=== PATIENT | female | born 1955 | race African-American/Black ===

== ENCOUNTER → 2016-07-09 | Outpatient (CLI) | payer OTHER ==
[~2016-07-09] VITALS: Ht 160 cm; Wt 109.5 kg
[~2016-07-09] MED LIST: ACCUNEB SO1.25 MG/1 INH; ADVAIR HFA 230M12 GM INH; ALBUTEROL2.5 MG/0.1 INH; ALBUTEROL2.5 MG/0.5 INH; ALDACTONE25 MG PO; ALEVE220 MG PO; ALPRAZOLAM ER1 MG PO; ALPRAZOLAM PO; ALPRAZOLAM1 MG PO; AMBIEN 10 MG TA10 MG PO; AMLODIPINE BESY10 MG PO; AMLODIPINE BESYL5 MG PO; APAP500 PO; ASA81BEC PO; BACTROBAN CREAM30 G1; BACTROBAN CREAM30 G1 TOP; BENADRYL25 MG PO; CALCIUM + VITA1 EACH PO; CALCIUM CITRAT1 EAC2 PO; CARAFATE 1 GM TA1 GM PO; CEFTIN 250 MG250 MG PO; CHERATUSSIN DA480 ML PO; CHLOR-TABLET4 MG PO; CHLORTHALIDONE25 MG PO; CIPRO500 MG PO; CITRACAL + D C1 EACH PO; CITRACAL D + H1 EACH PO; COLACE100 MG PO; CORTEF 20 MG TA20 MG PO; CORTEF10 MG PO; COZAAR 50 MG TA50 M1 PO; COZAAR100 MG PO; CRESTOR10 MG PO; DEPAKOTE 250MG250 M1 PO; DEXILANT60 MG; ELOCON15 GM; ELOCON15 GM TOP; FLAGYL500 MG PO; FLOMAX0.4 MG PO; FOLIC ACID; FOLIC ACID 40400 MCG PO; FOLIC ACID0.4 MG PO; GLUCOPHAGE500 MG PO; HYDROCODONE-AP1 EAC6 PO; HYDROCORT; HYDROCORTISONE PO; HYDROXYZINE HCL25 M1 PO; HYOSCYAMIN125 MCG/5 PO; IMODIUM MULTI-1 EACH PO; K-DUR 20 MEQ T20 MEQ PO; K-SOL20 MEQ/15 PO; KETOROLAC 0.5% E5 ML OPHTHALMIC; KLOR-CON 1010 MEQ PO; KLOR-CON20 MEQ PO; LATUDA60 MG PO; LEVAQUIN 500 M500 M2 PO; LEVEMIR SUBQ; LEVOTHYROXIN0.025 MG PO; LEVOTHYROXINE0.05 MG PO; LEXAPRO 10 MG T10 M1 PO; LEXAPRO20 MG PO; LIPITOR 20 MG T20 M1 PO; LISINOPRIL20 MG PO; LOMOTIL TABLET1 EACH PO; LOPERAMIDE 2 MG2 M1 PO; LORAZEPAM 0.50.5 MG PO; LOXAPINE25 MG PO; MEPRAZOLE; METFORMIN 500500 MG PO; METHOTREXATE; METHOTREXATE 22.5 M1 PO; MIRALAX17 GM PO; MIRALAX255 GM PO; MORPHINE; MORPHINE SULFAT30 M5 PO; MS CONTIN15 MG PO; MS CONTIN30 MG PO; MUCINEX DM TABL1 TA1 PO; MUCINEX600 MG PO; MULTIVITAMINS PO; NAPROSYN500 MG PO; NORCO 5-325 TA1 EACH PO; NORVASC 5 MG TAB5 MG PO; NORVASC5 MG PO; NOVOLOG100 UNIT/1 SUBQ; NOVOLOG100 UNIT/M SUBQ; OXYCODONE HCL15 MG PO; PHENERGAN 25 MG25 M1 PO; PHENERGAN25 MG RE; POTASSIUM20 PO; PRILOSEC 20 MG20 MG PO; PROMS25 WY RECTAL; PROTONIX40 M1 PO; PROTONIX40 M4 PO; RECLAST 55 MG/1002 IV; RECLAST 55 MG/1002 IVPB; REMERON15 MG PO; REMICADE 1100 MG/VIA; REMICADE 1100 MG/VIA IV; ROXICODONE15 M1 PO; ROXICODONE15 MG PO; SIMVASTATIN40 MG PO; SYMBICORT160 MCG/4.; TESSALON PERLE100 MG PO; TRADJENTA5 MG PO; TRANSDERM-SCO1 PATC1 TD; TRAZODONE HCL100 MG PO; TYLENOL325 MG PO; VANCOMYCIN100 MG/ML PO; VISTARIL 25 MG25 M1 PO; VITAMIN D; VITAMIN D 5050000 I1 PO; VITAMIN D2000 UNIT PO; XANAX; XANAX 0.25 MG0.25 MG PO; ZOFRAN ODT4 MG PO; ZOFRAN4 MG PO; ZYPREXA2.5 MG PO; [UNRECOGNIZED DRUG - OTHER]
--- NOTE | ~2016-07-09 | HPC ---
[facility] [address] [place] [address] PAIN MANAGEMENT CONSULTATION Name: YONG LUO Room #: REG [facility] Aminata.#: [id number] Admission: 07/09/16 Attend Phys: Evan Morales DO Discharge: Date of : 53 Report #: [id number] THIS REPORT FOR: //name// CC: Galdino Morales HISTORY OF PRESENT ILLNESS: The patient is a 60-year-old female. She had prior been seen last visit about 7 months ago in December 2014. She is status post lumbar decompressive laminectomy with ongoing radicular pain. We talked about moving forward with spinal cord stimulator at that time. She had epidural injections in August and September with transient efficacy. She has somewhat lost to follow up. Returns to pain clinic today, we had a prolonged visit today, greater than 50% of the 25+ minute visit was spent counseling the patient. She notes pain has recurred in the low back, right leg, lateral aspect, past several weeks without antecedent trauma nor overuse. While we had talked about a spinal cord stimulator as a possible option, her belt sander Dr. Roche had wisely pointed out that with the patient on Remicade, she is at high risk for surgical infection. We had discussed the stimulator as a "last option." The patient notes pain is "10" on a 0-10 visual analog scale. Presently, pain is interfering with function. She is unable to stand or walk for any period of time. PHYSICAL EXAMINATION: GENERAL: Shows a 60-year-old female, BMI is 42.8 kilograms per meter squared. Blood pressure is 102/67, pulse 107, respirations are 22. She is moderately febrile. Temperature 100. She notes she did wake last night with fever and chills. She does note she feels somewhat systemically ill with somewhat of an upper respiratory infection. She does have some cervical adenopathy. Positive rhonchi as well as erythema in the posterior pharynx. EXTREMITIES: Upper extremity strength is generally symmetric. Moderately antalgic gait. Right lower extremity strength is significantly diminished. The lower extremity extension and hip flexion is about 3/5 versus 4/5 on the left. Positive straight leg raise bilaterally at 30 degrees, right greater than left. Patellar and Achilles reflexes are diminished symmetrically. DIAGNOSTIC STUDIES: Reviewed MRI findings from 01/2013 noting grade 1 anterolisthesis at L5-S1, right lateral recess consistent with a chronic protrusion. ASSESSMENT: Symptomatic lumbar radiculopathy with acute upper respiratory infection. RECOMMENDATIONS: [facility] [address] [place] [address] PAIN MANAGEMENT CONSULTATION Name: YONG LUO Room #: REG [facility].#: [id number] Admission: 07/09/16 Attend Phys: Evan Morales DO Discharge: Date of : 53 Report #: [id number] 1. I do believe the patient benefitted from epidural injection under fluoroscopy. We will plan on moving forward after patient is seen by her general surgeon physician regarding upper respiratory infection symptoms. Again, with patient on Remicade, we are going to make sure that she is significantly improved before we expose her to any steroids. 2. Continue current medication from Dr. Roche including MS Contin and oxycodone p.r.n. The patient was discharged in good and stable condition today. Again on review, she notes she has a greater than 50% relief with prior injections in August 2014 and again in November 2015. We will plan on moving forward to repeat epidural injection under fluoroscopy at L5-S1 in about a week assuming her upper respiratory type symptoms are abated. Discharged in good and stable condition after prolonged visit. <ELECTRONICALLY SIGNED> By: Evan Morales DO 07/12/16 1228 1553 0403 Evan Morales DO /nt
[2016-07-09 09:23] VITALS: BP 102/67
== END | disposition home or self-care (01) ==
LOC: PAIN 07-02 07:46
DX: M54.16 Radiculopathy, lumbar region (principal); J06.9 Acute upper respiratory infection, unspecified; G89.29 Other chronic pain

== ENCOUNTER → 2016-08-23 | Outpatient (CLI) | payer OTHER ==
[~2016-08-23] VITALS: Ht 160 cm; Wt 108.4 kg
--- NOTE | ~2016-08-23 | HPC ---
[facility] [place] [address] PAIN MANAGEMENT CONSULTATION Name: ROYALYONG G Room #: REG [facility] MLucie.#: [id number] Admission: 08/23/16 Attend Phys: Evan Morales DO Discharge: Date of : 53 Report #: [id number] THIS REPORT FOR: //name// CC: Ric Morales HISTORY OF PRESENT ILLNESS: The patient is a 60-year-old female being treated for lumbar radiculopathy status post decompressive laminectomy, history of diabetes mellitus. She was last seen in the pain clinic 07/29/2016. Given a lumbar epidural injection at that time. She returns to pain clinic today noting the injection afforded at least 50% relief, which is ongoing. She states she is "able to do more." She does note she still has pain in the back and right leg, though back pain has dramatically improved; the right leg, she still rates up to 7/10. PHYSICAL EXAMINATION: Shows a modestly antalgic gait, slight decrease right hip flexor strength. Positive straight leg raise on the right. Vital signs are otherwise stable. BMI is slightly elevated at 42.3. She states blood sugars remained "reasonable" after KEENAN. ASSESSMENT: Symptomatic lumbar radiculopathy status post decompressive laminectomy, history of diabetes mellitus. RECOMMENDATION: Repeat epidural injection under fluoroscopy today. Follow up simply as needed. PROCEDURE: Lumbar epidural injection under fluoroscopy. PROCEDURE NOTE: After both written and informed consent to include risk of spinal cord damage, increased pain, weakness and dural puncture, the patient was taken to the fluoroscopy suite, placed in the prone position. After sterile prep and drape, a skin wheal with lidocaine was raised. A 4-1/2-inch 22-gauge epidural Tuohy needle was inserted in the midline at L5-S1 with good loss to resistance. Negative aspiration for cerebrospinal fluid or blood was noted. Then 1 mL of Omnipaque under biplanar fluoroscopy showed good spread within the epidural space. This was followed with 60 mg of triamcinolone plus 1 mL of 1.5% preservative-free Xylocaine, 0.5 mL Xylocaine was then injected to flush the needle; it was removed. The patient was monitored for an appropriate period of time and discharged in good and stable condition. <ELECTRONICALLY SIGNED> By: Evan Morales DO 08/25/16 0802 1548 Evan Morales DO /nt
[2016-08-23 14:06] VITALS: BP 142/82
== END | disposition home or self-care (01) ==
LOC: PAIN 08-19 12:57
DX: M54.16 Radiculopathy, lumbar region (principal); G89.29 Other chronic pain; E11.9 Type 2 diabetes mellitus without complications; E66.09 Other obesity due to excess calories; Z68.41 Body mass index [BMI] 40.0-44.9, adult

== ENCOUNTER 2016-10-11 11:11 | Inpatient (IN) | payer OTHER ==
[~2016-10-11] VITALS: Ht 160 cm; Wt 103.0 kg
--- NOTE | ~2016-10-11 | EKG ---
[address] [address] ELECTROCARDIOGRAM REPORT Name: YONG LUO Room #: 429-P ADM IN M.R.#: [id number] Admission: 10/11/16 Attend Phys: Adithya Hollis MD Discharge: Date of : 53 Report #: [id number] THIS REPORT FOR: //name// [facility] ED Test Date: 2016-10-11 Test Time: 12:15:44 Pat Name: YONG LUO Department: Room: 429 Gender: F Anodizer: faye : 1955 Requested By: Jaret Zhang Order Number: [id number] MD: Chao Santana Measurements Intervals [place] Rate: 95 P: 50 CT: 121 QRS: 49 QRSD: 93 T: 32 QT: 362 QTc: 455 Interpretive Statements Sinus rhythm Consider left ventricular hypertrophy Baseline wander in lead(s) V1,V2 Compared to ECG 04/29/2015 19:57:02 Sinus tachycardia no longer present ST (T wave) deviation no longer present Electronically Signed On 10-12-2016 8:49:13 CDT by Chao Santana [email or web address] <ELECTRONICALLY SIGNED> By: Chao Santana MD, [facility] 10/12/16 0849 1215 1215 Chao Santana MD, [facility] /EPI
[2016-10-11 11:15] VITALS: BP 140/73
[2016-10-11] MEDS ORDERED: AMBIEN 5 MG TABL5 M1 PO (11:40)
[2016-10-11] MEDS ORDERED: HYDROCORTISONE10 MG PO (11:41)
[2016-10-11] MEDS ORDERED: ALDACTONE25 MG PO (11:42)
[2016-10-11] MEDS ORDERED: NORVASC2.5 MG PO (11:42)
[2016-10-11] MEDS ORDERED: K-DUR 20 MEQ T20 MEQ PO (11:43)
[2016-10-11] MEDS ORDERED: PANTOPRAZOLE SO40 M1 PO (11:44)
[2016-10-11] MEDS ORDERED: METHOTREXATE 22.5 MG PO (11:45)
[2016-10-11] MEDS ORDERED: OLANZAPINE2.5 MG PO (11:45)
[2016-10-11] MEDS ORDERED: REMERON15 MG PO (11:49)
[2016-10-11] MEDS ORDERED: ESCITALOPRAM OX20 MG PO (11:50)
[2016-10-11] MEDS ORDERED: MS CONTIN 60 MG60 MG PO (11:50)
[2016-10-11] MEDS ORDERED: BD ULTRA-FINE1 EAC3 MC (11:51)
[2016-10-11] MEDS ORDERED: LEVEMIR FL100 UNIT/2 SQ (11:52)
[2016-10-11] MEDS ORDERED: NOVOLOG FL100 UNIT/M SC (11:53)
[2016-10-11] MEDS ORDERED: MS CONTIN 30 MG30 MG PO (11:53)
[2016-10-11] MEDS ORDERED: XANAX 0.5 MG0.5 MG PO (11:54)
[2016-10-11] MEDS ORDERED: VENTOLIN HFA 1818 GM INH (11:54)
[2016-10-11 12:26] LABS: ABSOLUTE NEUTROPHILS 6.7 thou/uL (1.4-8.2); BASOPHILS 0.7 % (0.0-2.0); EOSINOPHILS 0.7 % (0.0-3.0); HEMATOCRIT 47.4 % (37.0-47.0); LYMPHOCYTES 19.4 % (24.0-44.0); MCH 31.8 pg (26.0-34.0); MCHC 33.7 g/dL (28.0-37.0); MCV 94.6 fL (80.0-100.0); MONOCYTES 9.4 % (1.0-8.0); PLATELET COUNT 286 thou/uL (150-400); POLYS 69.8 % (36.0-66.0); RBC 5.02 mil/uL (4.20-5.00); RDW 18.4 % (10.5-14.5); WBC 9.6 thou/uL (4.0-11.0)
[2016-10-11 12:29] LABS: MANUAL DIFF NO
[2016-10-11 12:41] LABS: ANION GAP 16 mmol/L (7-16); BUN 20 mg/dL (7-18); CALCIUM 9.6 mg/dL (8.5-10.1); CHLORIDE 104 mmol/L (98-107); CO2 22 mmol/L (21-32); CREATININE 1.9 mg/dL (0.6-1.0); GLUCOSE 98 mg/dL (74-106); POTASSIUM 4.4 mmol/L (3.5-5.1); SODIUM 142 mmol/L (136-145)
[2016-10-11 12:45] LABS: URINE BILIRUBIN NEGATIVE (Negative); URINE BLOOD NEGATIVE (Negative); URINE COLOR YELLOW; URINE GLUCOSE-RANDOM* NEGATIVE (Negative); URINE KETONES NEGATIVE (Negative); URINE LEUKOCYTES-REFLEX NEGATIVE (Negative); URINE PROTEIN (DIPSTICK) NEGATIVE (Negative); URINE UROBILINOGEN 0.2 E.U./dl (0.2-1.0)
[2016-10-11 12:48] LABS: ALKALINE PHOSPHATASE 91 U/L (46-116); SGOT 30 U/L (15-37); SGPT 42 U/L (30-65); TOTAL BILIRUBIN 0.7 mg/dL (<0.1-1.0); TOTAL PROTEIN 8.5 g/dL (6.4-8.2); TROPONIN-I < 0.04 ng/mL (<0.04-0.07)
[2016-10-11 12:54] LABS: AMP/METHAMP Negative (Negative); BARBITURATES Negative (Negative); BENZODIAZEPINES Negative (Negative); COCAINE Negative (Negative); METHADONE Negative (Negative); OPIATES Negative (Negative); PCP Negative (Negative); THC Negative (Negative)
[2016-10-11 13:55] VITALS: BP 106/73
[2016-10-11 14:54] VITALS: BP 113/71
[2016-10-11 20:00] VITALS: BP 120/82
[2016-10-12 05:00] VITALS: BP 119/74
[2016-10-12 05:18] LABS: CALCIUM 8.1 mg/dL (8.5-10.1); CREATININE 1.3 mg/dL (0.6-1.0)
[2016-10-12 05:31] LABS: POTASSIUM 5.6 mmol/L (3.5-5.1)
[2016-10-12 07:15] VITALS: BP 121/59
[2016-10-12 15:25] VITALS: BP 160/88
[2016-10-12 20:00] VITALS: BP 167/87
[2016-10-13 02:15] VITALS: BP 144/83
[2016-10-13 07:55] VITALS: BP 140/68
[2016-10-13 10:20] LABS: HEMATOCRIT 38.7 % (37.0-47.0); MCH 31.7 pg (26.0-34.0); MCHC 33.7 g/dL (28.0-37.0); RBC 4.12 mil/uL (4.20-5.00); RDW 18.6 % (10.5-14.5); WBC 7.2 thou/uL (4.0-11.0)
[2016-10-13 10:30] LABS: CALCIUM 7.4 mg/dL (8.5-10.1); CREATININE 0.9 mg/dL (0.6-1.0); MAGNESIUM 1.8 mg/dL (1.8-2.4); POTASSIUM 3.6 mmol/L (3.5-5.1)
[2016-10-13 16:13] VITALS: BP 149/85
[2016-10-13 17:07] VITALS: BP 149/85
== END 2016-10-13 20:00 | disposition home or self-care (01) | DRG 917 ==
LOC: ER 11:11 → 4E 13:15 → EROBS 13:15 → 4E 13:55
PROVIDERS: Internal Medicine; Nurse Practitioner; Physician Assistant
PROC: 02HV33Z Insertion of Infusion Device into Superior Vena Cava, Percutaneous Approach (ICD-10-PCS; principal; 2016-10-11)
PROC: B548ZZA Ultrasonography of Superior Vena Cava, Guidance (ICD-10-PCS; principal; 2016-10-11)
DX: T40.601A Poisoning by unspecified narcotics, accidental (unintentional), initial encounter (principal); G92 Toxic encephalopathy; F11.20 Opioid dependence, uncomplicated; N17.9 Acute kidney failure, unspecified; I10 Essential (primary) hypertension; M19.90 Unspecified osteoarthritis, unspecified site; F31.9 Bipolar disorder, unspecified; E86.0 Dehydration; E11.65 Type 2 diabetes mellitus with hyperglycemia; E78.5 Hyperlipidemia, unspecified; G47.33 Obstructive sleep apnea (adult) (pediatric); E03.9 Hypothyroidism, unspecified; J44.9 Chronic obstructive pulmonary disease, unspecified; M06.9 Rheumatoid arthritis, unspecified; G89.4 Chronic pain syndrome; E87.5 Hyperkalemia; F41.1 Generalized anxiety disorder; Z79.4 Long term (current) use of insulin; Z91.14 Patient's other noncompliance with medication regimen; Z88.8 Allergy status to other drugs, medicaments and biological substances; Z79.899 Other long term (current) drug therapy
CPT/HCPCS: 10183; 27001

== ENCOUNTER 2016-10-26 23:50 | Inpatient (IN) | payer OTHER ==
[~2016-10-26] VITALS: Ht 160 cm; Wt 116.9 kg
--- NOTE | ~2016-10-26 | EKG ---
[address] [address] ELECTROCARDIOGRAM REPORT Name: YONG LUO Room #: 459-P ADM IN M.R.#: [id number] Admission: 10/27/16 Attend Phys: Clement Urbano MD Discharge: Date of : 53 Report #: [id number] THIS REPORT FOR: //name// [facility] Test Date: 2016-10-27 Test Time: 00:17:22 Pat Name: YONG LUO Department: Room: [facility] Gender: F Engineer Second Assistant: BRITTANY : 1955 Requested By: Tim Chávez Order Number: [id number] MD: Blayne Espinal Measurements Intervals [place] Rate: 61 P: 49 ME: 148 QRS: 44 QRSD: 77 T: 45 QT: 344 QTc: 347 Interpretive Statements Sinus rhythm Compared to ECG 10/11/2016 12:15:44 No significant changes Electronically Signed On 10-27-2016 9:40:45 CDT by Blayne Espinal [email or web address] <ELECTRONICALLY SIGNED> By: Blayne Espinal MD 10/27/16 0940 001 Blayne Espinal MD /[facility]
--- NOTE | ~2016-10-26 | HC ---
[facility] [place] [address] CONSULTATION Name: YONG LUO Room #: 459-P [facility] IN M.R.#: [id number] Admission: 10/27/16 Attend Phys: Susana Herrmann MD Discharge: 10/28/16 Date of : 53 Report #: [id number] THIS REPORT FOR: //name// CC: Clement Coxore Jose DATE OF SERVICE: 10/27/2016 REASON FOR CONSULTATION: Acute kidney injury and hyperkalemia. HISTORY OF PRESENT ILLNESS: This patient has longstanding diabetes mellitus and rheumatoid arthritis as well as hypertension, has been treated with a combination of lisinopril and spironolactone. She has now had 2 admissions this month with hyperkalemia, weakness and elevated creatinine. This most recent admission occurred overnight when her potassium was 8. She was very weak, unable to get around, this was treated overnight, now down to 5.4. Her creatinine, which is reasonably normal at baseline was up to 1.6 and now is improving. PAST MEDICAL HISTORY: She has had a questionable history of urinary retention on Flomax although I do not believe that has been adequately evaluated. She has longstanding diabetes, but no neuropathy or retinopathy. She has hypertension. She has had rheumatoid arthritis and has been controlled nicely on Remicade. She follows with Dr. Roche. She also gets methotrexate. She has had a history of rather severe depression done reasonably well on Lexapro at the current time. She has also had chronic low back syndrome. She has had 2 back surgeries about 16 years ago and really never got much relief from that. She is disabled. SOCIAL HISTORY: No smoking, no alcohol. Lives with her son. REVIEW OF SYSTEMS: GENERAL: She was feeling very weak, acutely, but she has been feeling reasonably well. EYES: Her vision has been okay. No problems there. ENT: Hearing okay, swallows okay. Denies mouth ulcers. ENDOCRINE: Positive for the diabetes. RESPIRATORY: She does get somewhat easily short-winded at times. No cough or hemoptysis. No pleuritic pain. CARDIAC: Denies chest pain, palpitations or arrhythmias, heart failure. GASTROINTESTINAL: No nausea, vomiting or diarrhea. No bloody stools. GENITOURINARY: A little bit of a sluggish stream, but no dysuria, hematuria, or stone disease. NEUROLOGIC: Denies symptoms of neuropathy. She, of course had the weakness when her potassium was very high, but otherwise is doing okay. No seizure or syncope or stroke. PSYCHIATRIC: She has had quite a bit of trouble with depression and done [facility] [address] [place] [address] CONSULTATION Name: YONG LUO Room #: 459-P [facility] IN M.R.#: [id number] Admission: 10/27/16 Attend Phys: Susana Herrmann MD Discharge: 10/28/16 Date of : 53 Report #: [id number] reasonably well on Lexapro. PHYSICAL EXAMINATION: VITAL SIGNS: This is an overweight relatively comfortable woman seen in her hospital bed. SKIN: Unremarkable. SKELETAL: Well developed, well nourished, but rather obese. HEENT: Extraocular movements are full. Vision is intact. Hearing is intact. No scleral icterus. Mucous membranes are moist. Tongue, buccal mucosa benign. NECK: Supple. Neck veins are flat. CHEST: Completely clear to auscultation. HEART: Regular, slightly distant. ABDOMEN: Soft and nontender, without bruits, masses or organomegaly. EXTREMITIES: Show absolutely no peripheral edema. Pulses intact. Neurologic exam is intact. LABORATORY DATA: Hemoglobin 11.6, white count 10.1, platelets 235. Currently, sodium 138, potassium 5.4, chloride 109, bicarbonate 22, BUN 24, creatinine 1.4 as noted, potassium was as high as 8 initially. ASSESSMENT AND PLAN: 1. Acute kidney injury. Her potassium went up, she became weak. Her creatinine christopher, it looks like both spironolactone and also the converting enzyme inhibitor will have to be stopped at least temporarily. She will have to be treated otherwise. Her antihypertensives will have to be readjusted blood pressures are currently low, we will continue to give her a little bit of IV fluid, watch that carefully so she does not get fluid overloaded. 2. Hypertension. We will have to watch that and rearrange her medications. 3. Rheumatoid arthritis on methotrexate and Remicade, doing well. 4. Depression, on Lexapro. She also takes Remeron at bedtime. 5. Hypothyroidism, on replacement. 6. History of low back syndrome, chronic. <ELECTRONICALLY SIGNED> By: Дмитрий Cordoba MD 11/02/16 0735 1128 48 Leonard Aguiar MD /nt
[~2016-10-26 23:50] MED LIST changes: +AMBIEN 5 MG TABL5 M1 PO; +BD ULTRA-FINE1 EAC3 MC; +ESCITALOPRAM OX20 MG PO; +HYDROCORTISONE10 MG PO; +LEVEMIR FL100 UNIT/2 SQ; +METHOTREXATE 22.5 MG PO; +MS CONTIN 30 MG30 MG PO; +MS CONTIN 60 MG60 MG PO; +NORVASC2.5 MG PO; +NOVOLOG FL100 UNIT/M SC; +OLANZAPINE2.5 MG PO; +PANTOPRAZOLE SO40 M1 PO; +VENTOLIN HFA 1818 GM INH; +XANAX 0.5 MG0.5 MG PO
[2016-10-26 23:51] VITALS: BP 118/55
[2016-10-27] VITALS (8 sets, daily range): BP systolic 92–173; BP diastolic 52–97
[2016-10-27 00:48] LABS: ABSOLUTE NEUTROPHILS 7.9 thou/uL (1.4-8.2); BASOPHILS 0.4 % (0.0-2.0); EOSINOPHILS 0.3 % (0.0-3.0); HEMATOCRIT 35.7 % (37.0-47.0); HEMOGLOBIN 11.6 gm/dL (12.0-15.0); LYMPHOCYTES 13.3 % (24.0-44.0); MCH 32.1 pg (26.0-34.0); MCHC 32.5 g/dL (28.0-37.0); MCV 98.7 fL (80.0-100.0); MONOCYTES 7.8 % (1.0-8.0); PLATELET COUNT 235 thou/uL (150-400); POLYS 78.2 % (36.0-66.0); RBC 3.62 mil/uL (4.20-5.00); WBC 10.1 thou/uL (4.0-11.0)
[2016-10-27 00:53] LABS: MANUAL DIFF NO
[2016-10-27 01:33] LABS: ALBUMIN 2.8 g/dL (3.4-5.0); ALKALINE PHOSPHATASE 56 U/L (46-116); ANION GAP 5 mmol/L (7-16); BUN 30 mg/dL (7-18); CALCIUM 9.3 mg/dL (8.5-10.1); CHLORIDE 107 mmol/L (98-107); CK-MB MASS 2.4 ng/mL (<0.5-3.6); CO2 24 mmol/L (21-32); CREATININE 1.6 mg/dL (0.6-1.0); GLUCOSE 86 mg/dL (74-106); MAGNESIUM 2.3 mg/dL (1.8-2.4); NT-PRO BRAIN NAT PEPTIDE 195 pg/mL (<300); SGOT 21 U/L (15-37); SGPT 34 U/L (30-65); SODIUM 136 mmol/L (136-145); TOTAL BILIRUBIN 0.4 mg/dL (<0.1-1.0); TOTAL PROTEIN 6.8 g/dL (6.4-8.2); TROPONIN-I < 0.04 ng/mL (<0.04-0.07)
[2016-10-27 01:37] LABS: URINE BILIRUBIN NEGATIVE (Negative); URINE BLOOD NEGATIVE (Negative); URINE COLOR YELLOW; URINE GLUCOSE-RANDOM* NEGATIVE (Negative); URINE KETONES NEGATIVE (Negative); URINE NITRITE NEGATIVE (Negative); URINE PROTEIN (DIPSTICK) NEGATIVE (Negative); URINE UROBILINOGEN 0.2 E.U./dl (0.2-1.0)
[2016-10-27] MEDS ORDERED: CORTEF10 MG PO (05:14)
[2016-10-27] MEDS ORDERED: OXYCODONE HCL E15 MG PO (05:18)
[2016-10-27] MEDS ORDERED: OXYCODONE HCL15 MG PO (05:19)
[2016-10-27 07:57] LABS: CALCIUM 8.3 mg/dL (8.5-10.1); CREATININE 1.4 mg/dL (0.6-1.0); POTASSIUM 5.4 mmol/L (3.5-5.1)
[2016-10-28 03:53] VITALS: BP 135/81
[2016-10-28 05:51] LABS: HEMATOCRIT 33.6 % (37.0-47.0); HEMOGLOBIN 11.1 gm/dL (12.0-15.0); MCHC 33.1 g/dL (28.0-37.0); MCV 96.9 fL (80.0-100.0); RBC 3.47 mil/uL (4.20-5.00); RDW 18.1 % (10.5-14.5); WBC 6.5 thou/uL (4.0-11.0)
[2016-10-28 06:09] LABS: ALBUMIN 2.2 g/dL (3.4-5.0); CREATININE 0.9 mg/dL (0.6-1.0); POTASSIUM 4.7 mmol/L (3.5-5.1); TOTAL BILIRUBIN 0.4 mg/dL (<0.1-1.0); TOTAL PROTEIN 5.6 g/dL (6.4-8.2)
[2016-10-28 07:50] VITALS: BP 122/75
[2016-10-28 11:14] VITALS: BP 122/75
[2016-10-28 11:52] VITALS: BP 127/73
[2016-10-28 14:25] VITALS: BP 122/75
[2016-10-28 15:07] LABS: KAPPA FREE LIGHT CHAINS 18.31 mg/L (3.30-19.40); KAPPA/LAMBDA RATIO 1.15 (0.26-1.65); LAMBDA FREE LIGHT CHAINS 15.88 mg/L (5.71-26.30)
[2016-10-28 17:11] LABS: URINE CREATININE-RANDOM* 43.5 mg/dL (Not Estab.); URINE PROTEIN-RANDOM* 6.4 mg/dL (Not Estab.)
[2016-11-01 16:07] LABS: A/G RATIO 0.9 (0.7-1.7); ALBUMIN 2.4 g/dL (2.9-4.4); ALPHA 1 0.2 g/dL (0.0-0.4); ALPHA 2 0.6 g/dL (0.4-1.0); BETA 0.9 g/dL (0.7-1.3); GAMMA 0.9 g/dL (0.4-1.8); M-SPIKE Not Observed g/dL (Not Observed)
== END 2016-10-28 14:45 | disposition home health service (06) | DRG 682 ==
LOC: ER 23:50 → 4W 10-27 02:46 → EROBS 10-27 02:46 → 4W 10-27 04:39
PROVIDERS: Emergency Medicine; Internal Medicine Nephrology; Nurse Practitioner Family
DX: N17.9 Acute kidney failure, unspecified (principal); E43 Unspecified severe protein-calorie malnutrition; E87.5 Hyperkalemia; N18.9 Chronic kidney disease, unspecified; I12.9 Hypertensive chronic kidney disease with stage 1 through stage 4 chronic kidney disease, or unspecified chronic kidney disease; M19.90 Unspecified osteoarthritis, unspecified site; E11.22 Type 2 diabetes mellitus with diabetic chronic kidney disease; F41.9 Anxiety disorder, unspecified; F31.9 Bipolar disorder, unspecified; M06.9 Rheumatoid arthritis, unspecified; E03.9 Hypothyroidism, unspecified; G89.4 Chronic pain syndrome; Z79.899 Other long term (current) drug therapy; Z79.4 Long term (current) use of insulin; Z88.8 Allergy status to other drugs, medicaments and biological substances
CPT/HCPCS: 10045

== ENCOUNTER 2017-01-15 14:12 | Observation (INO) | payer OTHER ==
[~2017-01-15] VITALS: Ht 160 cm; Wt 102.1 kg
[2017-01-15 14:12] VITALS: BP 160/80
[~2017-01-15 14:12] MED LIST changes: +OXYCODONE HCL E15 MG PO
[2017-01-15 14:32] LABS: URINE BLOOD NEGATIVE (Negative); URINE COLOR YELLOW; URINE GLUCOSE-RANDOM* NEGATIVE (Negative); URINE KETONES 3+ (Negative); URINE NITRITE NEGATIVE (Negative); URINE PROTEIN (DIPSTICK) NEGATIVE (Negative); URINE SPECIFIC GRAVITY >= 1.030 (1.003-1.035); URINE UROBILINOGEN 0.2 E.U./dl (0.2-1.0)
[2017-01-15 14:36] LABS: ICTOTEST (BILI CONFIRMATORY) Negative (Negative); URINE BILIRUBIN NEGATIVE (Negative)
[2017-01-15 14:43] LABS: ABSOLUTE NEUTROPHILS 9.2 thou/uL (1.4-8.2); BASOPHILS 0.8 % (0.0-2.0); EOSINOPHILS 0.3 % (0.0-3.0); HEMATOCRIT 45.3 % (37.0-47.0); LYMPHOCYTES 10.6 % (24.0-44.0); MCH 31.1 pg (26.0-34.0); MCHC 33.1 g/dL (28.0-37.0); MCV 93.9 fL (80.0-100.0); MONOCYTES 3.7 % (1.0-8.0); PLATELET COUNT 265 thou/uL (150-400); POLYS 84.6 % (36.0-66.0); RBC 4.82 mil/uL (4.20-5.00); WBC 10.8 thou/uL (4.0-11.0)
[2017-01-15 14:45] LABS: MANUAL DIFF NO
[2017-01-15 14:52] LABS: CALCIUM 9.6 mg/dL (8.5-10.1)
[2017-01-15 14:58] LABS: ALBUMIN 3.8 g/dL (3.4-5.0); TOTAL BILIRUBIN 0.9 mg/dL (<0.1-1.0); TOTAL PROTEIN 8.9 g/dL (6.4-8.2)
[2017-01-15 17:01] VITALS: BP 182/80
[2017-01-15 17:44] VITALS: BP 139/83
[2017-01-15 18:20] VITALS: BP 148/85
[2017-01-16 00:09] VITALS: BP 114/65
[2017-01-16 04:00] VITALS: BP 116/60
[2017-01-16 05:09] LABS: ABSOLUTE NEUTROPHILS 5.8 thou/uL (1.4-8.2); EOSINOPHILS 1.6 % (0.0-3.0); HEMATOCRIT 40.2 % (37.0-47.0); HEMOGLOBIN 13.1 gm/dL (12.0-15.0); LYMPHOCYTES 19.2 % (24.0-44.0); MCH 30.5 pg (26.0-34.0); MCHC 32.6 g/dL (28.0-37.0); MCV 93.5 fL (80.0-100.0); MONOCYTES 8.9 % (1.0-8.0); PLATELET COUNT 255 thou/uL (150-400); POLYS 69.3 % (36.0-66.0); WBC 8.4 thou/uL (4.0-11.0)
[2017-01-16 05:12] LABS: MANUAL DIFF NO
[2017-01-16 05:24] LABS: CALCIUM 8.4 mg/dL (8.5-10.1); CREATININE 0.9 mg/dL (0.6-1.0); POTASSIUM 3.7 mmol/L (3.5-5.1)
[2017-01-16 10:09] VITALS: BP 114/65
[2017-01-16 15:30] VITALS: BP 146/90
[2017-01-16 20:11] VITALS: BP 115/70
[2017-01-17 03:45] VITALS: BP 125/75
[2017-01-17 08:25] VITALS: BP 135/83
[2017-01-17 17:24] VITALS: BP 132/86
[2017-01-17 20:34] VITALS: BP 134/87
[2017-01-18 05:15] VITALS: BP 133/83
[2017-01-18 08:34] VITALS: BP 136/88
[2017-01-18 09:11] VITALS: BP 136/88
[2017-01-18 11:14] VITALS: BP 136/88
== END 2017-01-18 11:21 | disposition home or self-care (01) ==
LOC: ER 14:12 → EROBS 16:32 → 4E 17:46
PROVIDERS: Family Medicine; Physician Assistant
DX: K52.9 Noninfective gastroenteritis and colitis, unspecified (principal); R10.9 Unspecified abdominal pain; M54.9 Dorsalgia, unspecified; G89.29 Other chronic pain; I10 Essential (primary) hypertension; E11.8 Type 2 diabetes mellitus with unspecified complications; M06.9 Rheumatoid arthritis, unspecified; N28.1 Cyst of kidney, acquired; F41.9 Anxiety disorder, unspecified; F32.9 Major depressive disorder, single episode, unspecified; N39.0 Urinary tract infection, site not specified; K57.91 Diverticulosis of intestine, part unspecified, without perforation or abscess with bleeding; K26.9 Duodenal ulcer, unspecified as acute or chronic, without hemorrhage or perforation; Z72.89 Other problems related to lifestyle

== ENCOUNTER 2017-01-25 13:38 | Inpatient (IN) | payer OTHER ==
[~2017-01-25] VITALS: Ht 160 cm; Wt 103.3 kg
[2017-01-25 13:38] VITALS: BP 179/95
[2017-01-25 14:36] LABS: ABSOLUTE NEUTROPHILS 4.4 thou/uL (1.4-8.2); BASOPHILS 1.2 % (0.0-2.0); EOSINOPHILS 1.4 % (0.0-3.0); HEMATOCRIT 40.7 % (37.0-47.0); LYMPHOCYTES 25.4 % (24.0-44.0); MCH 29.8 pg (26.0-34.0); MCHC 32.1 g/dL (28.0-37.0); MONOCYTES 9.6 % (1.0-8.0); PLATELET COUNT 287 thou/uL (150-400); POLYS 62.4 % (36.0-66.0); RBC 4.37 mil/uL (4.20-5.00); RDW 16.4 % (10.5-14.5); WBC 7.1 thou/uL (4.0-11.0)
[2017-01-25 14:41] LABS: MANUAL DIFF NO
[2017-01-25 14:48] LABS: CALCIUM 8.9 mg/dL (8.5-10.1); CREATININE 0.9 mg/dL (0.6-1.0); POTASSIUM 4.8 mmol/L (3.5-5.1)
[2017-01-25 14:54] LABS: TOTAL BILIRUBIN 0.6 mg/dL (<0.1-1.0); TOTAL PROTEIN 7.2 g/dL (6.4-8.2)
[2017-01-25 15:10] LABS: URINE BILIRUBIN NEGATIVE (Negative); URINE BLOOD NEGATIVE (Negative); URINE COLOR YELLOW; URINE GLUCOSE-RANDOM* NEGATIVE (Negative); URINE KETONES NEGATIVE (Negative); URINE LEUKOCYTES-REFLEX NEGATIVE (Negative); URINE PROTEIN (DIPSTICK) NEGATIVE (Negative); URINE UROBILINOGEN 0.2 E.U./dl (0.2-1.0)
[2017-01-25 21:53] VITALS: BP 175/90
[2017-01-25 22:01] VITALS: BP 152/85
[2017-01-26 04:15] VITALS: BP 134/75
[2017-01-26 06:29] LABS: HEMATOCRIT 36.7 % (37.0-47.0); HEMOGLOBIN 11.9 gm/dL (12.0-15.0); MCH 30.2 pg (26.0-34.0); MCHC 32.5 g/dL (28.0-37.0); RBC 3.95 mil/uL (4.20-5.00); RDW 16.1 % (10.5-14.5); WBC 5.5 thou/uL (4.0-11.0)
[2017-01-26 06:43] LABS: CALCIUM 8.1 mg/dL (8.5-10.1); CREATININE 0.9 mg/dL (0.6-1.0)
[2017-01-26 06:49] LABS: POTASSIUM 2.9 mmol/L (3.5-5.1)
[2017-01-26 09:03] VITALS: BP 110/62
[2017-01-26 10:46] LABS: MAGNESIUM 1.7 mg/dL (1.8-2.4)
[2017-01-26 16:03] LABS: MAGNESIUM 1.6 mg/dL (1.8-2.4)
[2017-01-26 16:05] LABS: POTASSIUM 2.9 mmol/L (3.5-5.1)
[2017-01-26 17:59] VITALS: BP 136/70
[2017-01-26 19:50] VITALS: BP 144/76
[2017-01-27 00:31] LABS: MAGNESIUM 1.8 mg/dL (1.8-2.4); POTASSIUM 3.2 mmol/L (3.5-5.1)
[2017-01-27 04:25] VITALS: BP 108/53
[2017-01-27 08:00] VITALS: BP 119/59
[2017-01-27 16:00] VITALS: BP 12/65; BP 122/65
[2017-01-27 19:33] VITALS: BP 147/81
[2017-01-28 03:49] VITALS: BP 122/60
[2017-01-28 06:35] LABS: HEMATOCRIT 35.5 % (37.0-47.0); HEMOGLOBIN 11.3 gm/dL (12.0-15.0); MCH 29.9 pg (26.0-34.0); MCV 93.4 fL (80.0-100.0); RBC 3.8 mil/uL (4.20-5.00); RDW 16.2 % (10.5-14.5); WBC 6.4 thou/uL (4.0-11.0)
[2017-01-28 06:44] LABS: CALCIUM 7.5 mg/dL (8.5-10.1); CREATININE 0.9 mg/dL (0.6-1.0); MAGNESIUM 1.6 mg/dL (1.8-2.4); POTASSIUM 3.6 mmol/L (3.5-5.1)
[2017-01-28 09:00] VITALS: BP 136/74
[2017-01-28 15:26] VITALS: BP 136/74
[2017-01-28 15:41] VITALS: BP 131/71
[2017-01-28 20:18] VITALS: BP 145/73
[2017-01-29 03:45] LABS: HEMATOCRIT 35.9 % (37.0-47.0); HEMOGLOBIN 11.5 gm/dL (12.0-15.0); MCHC 32.2 g/dL (28.0-37.0); MCV 93.2 fL (80.0-100.0); PLATELET COUNT 232 thou/uL (150-400); RBC 3.85 mil/uL (4.20-5.00); RDW 16.3 % (10.5-14.5)
[2017-01-29 03:47] LABS: MANUAL DIFF YES
[2017-01-29 03:57] LABS: CALCIUM 7.9 mg/dL (8.5-10.1); CREATININE 0.8 mg/dL (0.6-1.0); MAGNESIUM 1.9 mg/dL (1.8-2.4); POTASSIUM 3.9 mmol/L (3.5-5.1)
[2017-01-29 03:58] VITALS: BP 134/61
[2017-01-29 06:26] LABS: ABSOLUTE NEUTROPHILS 3.6 thou/uL (1.4-8.2); ANISOCYTOSIS 1+; TOTAL CELL COUNT 100
[2017-01-29 07:33] VITALS: BP 114/70
[2017-01-29 16:40] VITALS: BP 108/65
[2017-01-29 19:13] VITALS: BP 126/70
[2017-01-30 04:42] VITALS: BP 115/58
[2017-01-30 04:55] LABS: HEMOGLOBIN 11.7 gm/dL (12.0-15.0); MCH 30.2 pg (26.0-34.0); MCHC 32.4 g/dL (28.0-37.0); MCV 93.3 fL (80.0-100.0); RBC 3.86 mil/uL (4.20-5.00); WBC 6.4 thou/uL (4.0-11.0)
[2017-01-30 05:17] LABS: ALBUMIN 2.6 g/dL (3.4-5.0); CREATININE 0.9 mg/dL (0.6-1.0); PHOSPHORUS 2.2 mg/dL (2.5-4.9); POTASSIUM 4.2 mmol/L (3.5-5.1)
[2017-01-30 09:25] VITALS: BP 109/54
== END 2017-01-30 10:55 | disposition home health service (06) | DRG 392 ==
LOC: ER 13:38 → 4S 19:37 → EROBS 19:37 → 4S 21:54
PROVIDERS: Emergency Medicine; Hospitalist; Internal Medicine; Nurse Practitioner; Nurse Practitioner Family
DX: R10.9 Unspecified abdominal pain (principal); R19.7 Diarrhea, unspecified; E11.9 Type 2 diabetes mellitus without complications; I10 Essential (primary) hypertension; F41.9 Anxiety disorder, unspecified; F31.9 Bipolar disorder, unspecified; M06.9 Rheumatoid arthritis, unspecified; E87.6 Hypokalemia; E83.42 Hypomagnesemia; G89.29 Other chronic pain; M54.9 Dorsalgia, unspecified; E03.9 Hypothyroidism, unspecified; D64.9 Anemia, unspecified; Z90.49 Acquired absence of other specified parts of digestive tract; Z87.440 Personal history of urinary (tract) infections; Z79.899 Other long term (current) drug therapy; Z88.8 Allergy status to other drugs, medicaments and biological substances; Z80.0 Family history of malignant neoplasm of digestive organs; Z87.11 Personal history of peptic ulcer disease
CPT/HCPCS: 10195

== ENCOUNTER 2017-02-02 05:16 | Inpatient (IN) | payer OTHER ==
[2017-02-02] VITALS (7 sets, daily range): BP systolic 147–171; BP diastolic 79–101
[~2017-02-02] VITALS: Ht 160 cm; Wt 103.9 kg
--- NOTE | ~2017-02-02 | P ---
[facility] [place] [address] PROCEDURE REPORT Name: YONG LUO Room #: 310-P [facility] IN M.R.#: [id number] Admission: 02/02/17 Attend Phys: Nadeem Correa MD Discharge: 02/07/17 Date of : 53 Report #: [id number] THIS REPORT FOR: //name// CC: Nadeem Correa MD Ric Garcia DATE OF SERVICE: 02/04/2017 PROCEDURE PERFORMED: Upper endoscopy with biopsies. HISTORY OF PRESENT ILLNESS: The patient is a 61-year-old female with abdominal pain, nausea, vomiting, diarrhea. She has been hospitalized several times for same symptoms. She takes methotrexate and Remicade for rheumatoid arthritis. She had a colonoscopy in 2014 showing diverticulosis and rectal ulcer. She had a previous duodenal ulcer. Denies any obvious bleeding. DESCRIPTION OF PROCEDURE: The risks and benefits of the procedure were explained to the patient, those risks including but not limited to bleeding, perforation, the risk of sedation. She understood these risks and gave informed consent. Sedation was given using propofol per anesthesia. Next, using a standard FIRE1n upper endoscope, the scope was placed in the patient's mouth and advanced under direct vision through the esophagus, stomach and into the second portion of the duodenum. The larynx was normal in appearance. The esophagus was normal throughout. The GE junction was normal. Overall, the gastric mucosa was normal. The pylorus was normal and patent. The duodenal bulb, first and second portion were all normal. Random biopsies were obtained of the second portion of the duodenum to rule out the possibility of celiac sprue. Gastric biopsies were also obtained to rule out H. pylori. The scope was then withdrawn and the procedure terminated. The patient tolerated the procedure well. IMPRESSION: Normal upper endoscopy. RECOMMENDATIONS: 1. Await biopsy results. 2. Continue PPI therapy. 3. We will proceed with colonoscopy the next day. Thank you for allowing me to participate in her care. <ELECTRONICALLY SIGNED> By: Champ Duenas MD 02/09/17 1226 1435 2134 Champ Duenas MD /nt
--- NOTE | ~2017-02-02 | P ---
[facility] [place] [address] PROCEDURE REPORT Name: YONG LUO Room #: 310-P [facility] IN M.R.#: [id number] Admission: 02/02/17 Attend Phys: Nadeem Correa MD Discharge: 02/07/17 Date of : 53 Report #: [id number] THIS REPORT FOR: //name// CC: Nadeem Prattodore Garcia DATE OF SERVICE: 02/04/2017 PROCEDURE PERFORMED: Colonoscopy with biopsies. HISTORY OF PRESENT ILLNESS: The patient is a 61-year-old female with abdominal pain, nausea, vomiting and diarrhea. Upper endoscopy was just performed, which was negative. A CT scan of the abdomen and pelvis on 02/02/2017 shows no focal bowel inflammatory changes. Mild distal colonic diverticulosis is noted. DESCRIPTION OF PROCEDURE: The risks and benefits of the procedure were explained to the patient, those risks including but not limited to bleeding, perforation and the risk of sedation. She understood these risks and gave informed consent. Sedation was given using propofol per anesthesia. Next, a digital rectal exam was initially performed, which was normal. Next, using a standard Fujinon colonoscope, the scope was placed in the patient's anus and advanced under direct vision to the cecum. The overall prep was good. The cecum and ileocecal valve were normal in appearance. Ascending, transverse and descending colon were normal. Random biopsies were obtained to rule out the possibility of microscopic colitis. A few scattered diverticula were noted in the sigmoid colon, no evidence of inflammation, otherwise normal. The rectal mucosa was normal. On retroflexion, small nonbleeding internal hemorrhoids were noted, otherwise normal colonoscopy. The scope was then withdrawn, and the procedure was terminated. The patient tolerated the procedure well. IMPRESSION: 1. Sigmoid diverticulosis. 2. Internal hemorrhoids. 3. Otherwise, normal colonoscopy. RECOMMENDATIONS: Await biopsy results. Thank you for allowing me to participate in her care. <ELECTRONICALLY SIGNED> By: Champ Duenas MD 02/09/17 1226 1439 2154 Champ Duenas MD /nt
--- NOTE | ~2017-02-02 | S ---
[facility] [address] [place] [address] SURGICAL PATH RPT PROCEDURE Name: GEOVANNA LUO Room #: 310-P ADM IN M.R.#: [id number] Admission: 02/02/17 Date of : 53 Discharge: Report #: [id number] Path Case #: [id number] PATHOLOGY REPORT COLLECTION DATE: 02/04/2017 RECEIVED DATE: 02/04/2017 SUBMITTING PHYS: Dr. Champ Duenas OTHER PHYS: Dr. Nadeem Garcia SPECIMEN(S) RECEIVED: A.Bx of gastritis B.Bx of duodenum C.Random colon bx * * * * * * * * * * * * FINAL DIAGNOSIS: A. Gastric mucosa, gastritis to rule out H. pylori, endoscopic biopsy: - Moderate reactive gastropathy. - Negative for intestinal metaplasia or atrophy. - Negative for Helicobacter pylori. B. Small bowel mucosa, duodenum to rule out sprue, endoscopic biopsy: - Focal fundic-type metaplasia with acute inflammation, compatible with focal active peptic duodenitis. - Occasional dilated lymphatics within lamina propria. - Negative for villous blunting or increase in intraepithelial lymphocytosis. C. Large intestine, random to rule out microscopic colitis, endoscopic biopsy: - Focal active surface epithelial inflammation as well as increased cellularity of lamina propria, compatible with nonspecific changes (please see comment). - Negative for dysplasia or malignancy. (IUV:nik; 02/07/2017) COMMENT: A. Helicobacter pylori immunohistochemical stain performed on block A1- Negative. C. Examination shows a rare neutrophil within the surface epithelium, and expanded lamina propria by lymphocytes, plasma cells, as well as eosinophils with unremarkable crypt architecture. There is no active cryptitis, viral inclusions, parasitic organisms, crypt abscess formation, or granulomata identified. Findings are nonspecific and may be related to bowel preparation, or medication-induced colitis. There is no dysplasia or malignancy present. Please correlate clinically. [address] [address] SURGICAL PATH RPT PROCEDURE Name: CHAD LUORA De La Garza Room #: 310-P [facility] IN [facility]#: [id number] Admission: 02/02/17 Date of : 53 Discharge: Report #: [id number] Path Case #: [id number] (IUV:nik; 02/07/2017) PATHOLOGIST: Seema Fernández M.D. REPORT ELECTRONICALLY SIGNED BY: Seema Fernández M.D. DATE/TIME: 02/07/2017 16:38 * * * * * * * * * * * * GROSS PATHOLOGY: A. Received in formalin labeled "EUGENIE Dunham of gastritis to r/o H. pylori," are five segments of britton soft tissue measuring 1.5 x 0.3 x 0.2 cm in aggregate dimensions and ranging from 0.1 to 0.6 cm in maximum dimension. The specimen is submitted entirely in cassette A1. B. Received in formalin labeled "EUGENIE Dunham of duodenum to r/o sprue," are three segments of britton soft tissue measuring 1.0 x 0.3 x 0.2 cm in aggregate dimensions and ranging from 0.2 to 0.4 cm in maximum dimension. The specimen is submitted entirely in cassette B1. C. Received in formalin labeled "Geovanna Luo, random BX to r/o microscopic colitis," are three segments of britton soft tissue measuring 1.1 x 0.3 x 0.3 cm in aggregate dimensions and ranging from 0.3 to 0.4 cm in maximum dimension. The specimen is submitted entirely in cassette C1. (TSD; 02/04/2017) CLINICAL HISTORY: Abdominal pain, N/V, diarrhea INITIAL CPT CODE(S): A; 00490, 04376 B; 77530 C; 09803 Professional services performed by [facility] at [place] [address], [place] [address] Technical services performed by [facility] at [address] [place] [address], [address], [place] [address]. [facility] [address] [place] [address] PHONE: [phone] DIRECTOR: Rm Villanueva M.D. * * * END OF REPORT * * *
[2017-02-02] MEDS ORDERED: AMBIEN 5 MG TABL5 M1 PO (05:45)
[2017-02-02 05:54] LABS: BASOPHILS 0.7 % (0.0-2.0); EOSINOPHILS 1.1 % (0.0-3.0); HEMATOCRIT 45.1 % (37.0-47.0); HEMOGLOBIN 14.5 gm/dL (12.0-15.0); LYMPHOCYTES 16.4 % (24.0-44.0); MCH 29.8 pg (26.0-34.0); MCHC 32.2 g/dL (28.0-37.0); MCV 92.5 fL (80.0-100.0); MONOCYTES 7.1 % (1.0-8.0); PLATELET COUNT 276 thou/uL (150-400); POLYS 74.7 % (36.0-66.0); RBC 4.88 mil/uL (4.20-5.00); RDW 16.7 % (10.5-14.5); WBC 17.3 thou/uL (4.0-11.0)
[2017-02-02 05:57] LABS: CALCIUM 9.5 mg/dL (8.5-10.1); CREATININE 0.8 mg/dL (0.6-1.0)
[2017-02-02 06:03] LABS: ALBUMIN 3.5 g/dL (3.4-5.0); POTASSIUM 2.9 mmol/L (3.5-5.1); TOTAL BILIRUBIN 0.4 mg/dL (<0.1-1.0); TOTAL PROTEIN 7.9 g/dL (6.4-8.2)
[2017-02-02 06:09] LABS: MANUAL DIFF NO
[2017-02-02 08:30] LABS: URINE BILIRUBIN NEGATIVE (Negative); URINE BLOOD NEGATIVE (Negative); URINE COLOR YELLOW; URINE GLUCOSE-RANDOM* NEGATIVE (Negative); URINE KETONES TRACE (Negative); URINE LEUKOCYTES-REFLEX NEGATIVE (Negative); URINE PROTEIN (DIPSTICK) NEGATIVE (Negative); URINE UROBILINOGEN 0.2 E.U./dl (0.2-1.0)
[2017-02-03 02:51] VITALS: BP 121/79
[2017-02-03 04:04] LABS: HEMATOCRIT 39.6 % (37.0-47.0); HEMOGLOBIN 12.9 gm/dL (12.0-15.0); MCHC 32.5 g/dL (28.0-37.0); MCV 92.3 fL (80.0-100.0); RBC 4.3 mil/uL (4.20-5.00); RDW 16.6 % (10.5-14.5); WBC 9.8 thou/uL (4.0-11.0)
[2017-02-03 04:08] LABS: ALBUMIN 2.6 g/dL (3.4-5.0); CREATININE 0.8 mg/dL (0.6-1.0); POTASSIUM 3.2 mmol/L (3.5-5.1); TOTAL BILIRUBIN 0.4 mg/dL (<0.1-1.0); TOTAL PROTEIN 6.1 g/dL (6.4-8.2)
[2017-02-03 08:00] VITALS: BP 127/73
[2017-02-03 17:24] VITALS: BP 110/68
[2017-02-03 19:08] VITALS: BP 145/76
[2017-02-04 06:14] LABS: CALCIUM 7.7 mg/dL (8.5-10.1); CREATININE 0.9 mg/dL (0.6-1.0); POTASSIUM 3.6 mmol/L (3.5-5.1)
[2017-02-04 08:00] VITALS: BP 126/66
[2017-02-04 16:00] VITALS: BP 132/68
[2017-02-04 19:30] VITALS: BP 140/84
[2017-02-05 03:30] VITALS: BP 158/77
[2017-02-05 07:16] VITALS: BP 145/78
[2017-02-05] MEDS ORDERED: ERYPED 200 MG/200 MG PO (11:06)
[2017-02-05 11:54] VITALS: BP 145/78
[2017-02-05 11:58] VITALS: BP 145/78
[2017-02-05 19:54] VITALS: BP 154/80
[2017-02-06 03:34] VITALS: BP 143/77
[2017-02-06 08:17] VITALS: BP 135/79
[2017-02-06 15:15] VITALS: BP 143/79
[2017-02-06 20:08] VITALS: BP 152/84
[2017-02-07 03:39] VITALS: BP 168/94
[2017-02-07 07:38] VITALS: BP 160/92
[2017-02-07 15:33] VITALS: BP 132/69
[2017-02-07] MEDS ORDERED: MS CONTIN 30 MG30 M1 PO (15:57)
[2017-02-07 16:34] VITALS: BP 145/78
== END 2017-02-07 17:42 | disposition home or self-care (01) | DRG 74 ==
LOC: ER 05:16 → 3N 09:12 → EROBS 09:12 → 3N 10:24
PROVIDERS: Emergency Medicine; Internal Medicine; Nurse Practitioner Acute Care
PROC: 0DBE8ZX Excision of Large Intestine, Via Natural or Artificial Opening Endoscopic, Diagnostic (ICD-10-PCS; principal; 2017-02-04)
PROC: 0DB98ZX Excision of Duodenum, Via Natural or Artificial Opening Endoscopic, Diagnostic (ICD-10-PCS; principal; 2017-02-04)
PROC: 0DB68ZX Excision of Stomach, Via Natural or Artificial Opening Endoscopic, Diagnostic (ICD-10-PCS; principal; 2017-02-04)
DX: E11.43 Type 2 diabetes mellitus with diabetic autonomic (poly)neuropathy (principal); K56.7 Ileus, unspecified; E11.9 Type 2 diabetes mellitus without complications; F31.9 Bipolar disorder, unspecified; F41.9 Anxiety disorder, unspecified; I10 Essential (primary) hypertension; K57.30 Diverticulosis of large intestine without perforation or abscess without bleeding; K64.8 Other hemorrhoids; E87.6 Hypokalemia; G89.29 Other chronic pain; M54.9 Dorsalgia, unspecified; M06.9 Rheumatoid arthritis, unspecified; K31.84 Gastroparesis; Z90.49 Acquired absence of other specified parts of digestive tract; Z79.899 Other long term (current) drug therapy; Z88.8 Allergy status to other drugs, medicaments and biological substances; Z88.6 Allergy status to analgesic agent; Z80.0 Family history of malignant neoplasm of digestive organs
CPT/HCPCS: 10094; 27001; 62110; 70005

== ENCOUNTER 2017-03-02 01:39 | Inpatient (IN) | payer OTHER ==
[~2017-03-02] VITALS: Ht 160 cm; Wt 104.0 kg
[2017-03-02] VITALS (46 sets, daily range): BP systolic 70–160; BP diastolic 38–80
--- NOTE | ~2017-03-02 | EKG ---
[address] [address] ELECTROCARDIOGRAM REPORT Name: YONG LUO Room #: 241-P ADM IN M.R.#: [id number] Admission: 03/02/17 Attend Phys: Nadeem Correa MD Discharge: Date of : 53 Report #: [id number] THIS REPORT FOR: //name// [facility] ED Test Date: 2017-03-02 Test Time: 02:43:15 Pat Name: YONG LUO Department: Room: 241 Gender: F Order Runner: BRITTANY : 1955 Requested By: Esequiel Zayas Order Number: [id number] MD: Chao Santana Measurements Intervals [place] Rate: 95 P: 51 NH: 142 QRS: 37 QRSD: 83 T: 15 QT: 359 QTc: 452 Interpretive Statements Sinus rhythm Borderline T wave abnormalities Compared to ECG 10/27/2016 00:17:22 T-wave abnormality now present Electronically Signed On 03-02-2017 8:12:48 CDT by Chao Santana [email or web address] <ELECTRONICALLY SIGNED> By: Chao Santana MD, [facility] [id number] 2 2 Chao Santana MD, [facility] /EPI
[~2017-03-02 01:39] MED LIST changes: +ERYPED 200 MG/200 MG PO; +MS CONTIN 30 MG30 M1 PO
[2017-03-02 02:24] LABS: ABG SAMPLE TYPE ARTERIAL; BE(vivo) -0.9 mmol/L (-2 to +3); HCO3 27.6 mmol/L (22.0-26.0); O2(CT) 17.4 mL/dL (15.0-23.0); O2Hb 90.4 % (92.0-98.0); PCO2 63.3 mmHg (35.0-45.0); PO2 68.6 mmHg (80.0-100.0); STICK SITE L.BRACHIAL; pH 7.257 (7.360-7.450); sO2 90.5 % (92.0-98.0); tCO2 29.5 mmol/L (24.0-30.0)
[2017-03-02 02:25] LABS: HEMATOCRIT 40.6 % (37.0-47.0); HEMOGLOBIN 13.1 gm/dL (12.0-15.0); MCH 29.1 pg (26.0-34.0); MCHC 32.3 g/dL (28.0-37.0); MCV 90.2 fL (80.0-100.0); RBC 4.5 mil/uL (4.20-5.00); RDW 18.6 % (10.5-14.5); WBC 10.3 thou/uL (4.0-11.0)
[2017-03-02 02:34] LABS: CALCIUM 9.1 mg/dL (8.5-10.1); CREATININE 4.7 mg/dL (0.6-1.0); POTASSIUM 4.7 mmol/L (3.5-5.1)
[2017-03-02 02:43] LABS: TROPONIN-I 0.07 ng/mL (<0.04-0.07)
[2017-03-02 03:12] LABS: URINE BLOOD TRACE (Negative); URINE COLOR YELLOW; URINE GLUCOSE-RANDOM* NEGATIVE (Negative); URINE KETONES TRACE (Negative); URINE LEUKOCYTES-REFLEX NEGATIVE (Negative); URINE PROTEIN (DIPSTICK) TRACE (Negative); URINE SPECIFIC GRAVITY >= 1.030 (1.003-1.035); URINE UROBILINOGEN 0.2 E.U./dl (0.2-1.0)
[2017-03-02 03:19] LABS: ICTOTEST (BILI CONFIRMATORY) Negative (Negative); URINE BILIRUBIN NEGATIVE (Negative)
[2017-03-02 03:20] LABS: AMP/METHAMP Negative (Negative); BARBITURATES Negative (Negative); BENZODIAZEPINES POSITIVE (Negative); COCAINE Negative (Negative); METHADONE Negative (Negative); OPIATES POSITIVE (Negative); PCP Negative (Negative); THC Negative (Negative)
[2017-03-02 04:53] LABS: ABG SAMPLE TYPE ARTERIAL; BE(vivo) -3.4 mmol/L (-2 to +3); HCO3 26.2 mmol/L (22.0-26.0); LACTATE 1.29 mmol/L (0.5-2.0); O2(CT) 18.6 mL/dL (15.0-23.0); PCO2 70.1 mmHg (35.0-45.0); PO2 141.7 mmHg (80.0-100.0); sO2 98.2 % (92.0-98.0); tCO2 28.4 mmol/L (24.0-30.0)
[2017-03-02 04:54] LABS: ABG COMMENT BIPAP 14/ 6; Pressure Support 8 cm H20; STICK SITE R.BRACHIAL; pH 7.191 (7.360-7.450)
[2017-03-02 07:26] LABS: ABG SAMPLE TYPE ARTERIAL; BE(vivo) -4.1 mmol/L (-2 to +3); HCO3 24.1 mmol/L (22.0-26.0); LACTATE 1.31 mmol/L (0.5-2.0); O2(CT) 17.6 mL/dL (15.0-23.0); O2Hb 96.8 % (92.0-98.0); PCO2 58.1 mmHg (35.0-45.0); PO2 116.6 mmHg (80.0-100.0); pH 7.235 (7.360-7.450); sO2 97.5 % (92.0-98.0); tCO2 25.8 mmol/L (24.0-30.0)
[2017-03-02 07:27] LABS: STICK SITE L.RADIAL
[2017-03-02 07:28] LABS: TIDAL VOLUME 450 ml
[2017-03-03] VITALS (37 sets, daily range): BP systolic 108–173; BP diastolic 49–126
[2017-03-03 06:03] LABS: HEMATOCRIT 34.3 % (37.0-47.0); MCH 29.4 pg (26.0-34.0); MCHC 32.2 g/dL (28.0-37.0); MCV 91.3 fL (80.0-100.0); RBC 3.76 mil/uL (4.20-5.00); RDW 18.3 % (10.5-14.5); WBC 8.3 thou/uL (4.0-11.0)
[2017-03-03 06:18] LABS: CALCIUM 8.1 mg/dL (8.5-10.1); MAGNESIUM 2.1 mg/dL (1.8-2.4); POTASSIUM 4.6 mmol/L (3.5-5.1)
[2017-03-03 06:19] LABS: CREATININE 0.8 mg/dL (0.6-1.0)
[2017-03-03 09:48] LABS: ABG SAMPLE TYPE ARTERIAL; BE(vivo) -1.4 mmol/L (-2 to +3); HCO3 24.1 mmol/L (22.0-26.0); LACTATE 1.59 mmol/L (0.5-2.0); O2(CT) 15.5 mL/dL (15.0-23.0); O2Hb 88.2 % (92.0-98.0); PCO2 43.5 mmHg (35.0-45.0); pH 7.362 (7.360-7.450); tCO2 25.5 mmol/L (24.0-30.0)
[2017-03-03 09:50] LABS: PO2 55.9 mmHg (80.0-100.0); STICK SITE R.RADIAL
[2017-03-04] VITALS (24 sets, daily range): BP systolic 98–158; BP diastolic 54–98
[2017-03-04 09:09] LABS: HEMATOCRIT 35.2 % (37.0-47.0); HEMOGLOBIN 11.6 gm/dL (12.0-15.0); MCH 29.6 pg (26.0-34.0); MCV 89.7 fL (80.0-100.0); RBC 3.92 mil/uL (4.20-5.00); RDW 18.3 % (10.5-14.5); WBC 7.5 thou/uL (4.0-11.0)
[2017-03-04 09:18] LABS: CREATININE 0.7 mg/dL (0.6-1.0); MAGNESIUM 1.9 mg/dL (1.8-2.4); POTASSIUM 3.7 mmol/L (3.5-5.1)
[2017-03-05] VITALS (15 sets, daily range): BP systolic 114–165; BP diastolic 60–88
[2017-03-06 04:21] VITALS: BP 117/51
[2017-03-06 07:26] VITALS: BP 110/60
[2017-03-06 12:03] VITALS: BP 110/60
== END 2017-03-06 13:03 | disposition home or self-care (01) | DRG 917 ==
LOC: ER 01:39 → ICU 04:00 → EROBS 04:00 → ICU 05:51 → 4S 03-05 12:52
PROVIDERS: Emergency Medicine; Internal Medicine; Nurse Practitioner Acute Care
PROC: 5A09357 Assistance with Respiratory Ventilation, Less than 24 Consecutive Hours, Continuous Positive Airway Pressure (ICD-10-PCS; principal; 2017-03-02)
DX: T40.0X1A Poisoning by opium, accidental (unintentional), initial encounter (principal); G92 Toxic encephalopathy; J96.02 Acute respiratory failure with hypercapnia; J96.01 Acute respiratory failure with hypoxia; N17.9 Acute kidney failure, unspecified; F31.30 Bipolar disorder, current episode depressed, mild or moderate severity, unspecified; F11.121 Opioid abuse with intoxication delirium; E11.9 Type 2 diabetes mellitus without complications; G89.29 Other chronic pain; M06.9 Rheumatoid arthritis, unspecified; I10 Essential (primary) hypertension; F41.9 Anxiety disorder, unspecified; Z87.440 Personal history of urinary (tract) infections; Z98.51 Tubal ligation status; Z88.6 Allergy status to analgesic agent; Z88.8 Allergy status to other drugs, medicaments and biological substances; Z79.4 Long term (current) use of insulin; Z80.0 Family history of malignant neoplasm of digestive organs; Z79.84 Long term (current) use of oral hypoglycemic drugs; Z79.899 Other long term (current) drug therapy; Z87.19 Personal history of other diseases of the digestive system; Z23 Encounter for immunization
CPT/HCPCS: 10078; 10102

== ENCOUNTER 2017-09-22 15:49 | Inpatient (IN) | payer OTHER ==
[~2017-09-22] VITALS: Ht 160 cm; Wt 105.2 kg
--- NOTE | ~2017-09-22 | HC ---
[facility] [place] [address] CONSULTATION Name: YONG LUO Room #: 361-P [facility] IN M.R.#: [id number] Admission: 09/22/17 Attend Phys: Nadeem Correa MD Discharge: 09/26/17 Date of : 53 Report #: [id number] THIS REPORT FOR: //name// CC: Nadeem Correa NO PCP DATE OF SERVICE: 09/26/2017 HISTORY OF PRESENT ILLNESS: The patient is a 62-year-old female admitted with shortness of breath, noted to have acute respiratory failure likely secondary to narcotic overdose. She had acute renal insufficiency, which has resolved. She was initially placed on BiPAP. She was treated for urinary tract infection. She was noted to have acute renal insufficiency, which improved with intravenous fluids. She is now feeling much better. PAST MEDICAL HISTORY: Includes hypertension, rheumatoid arthritis, depression. She has been on narcotics for her rheumatoid pain. MEDICATIONS: Please see the full medication listing. SOCIAL HISTORY: Lives in an apartment, has involved family, was premorbidly independent without gait aids. REVIEW OF SYSTEMS: No current complaints of chest pain, shortness of breath or abdominal discomfort. PHYSICAL EXAMINATION: GENERAL: An overweight 62-year-old female in no obvious distress. VITAL SIGNS: Last recorded temperature is 98.4, pulse 59, respirations 18, blood pressure 162/83. HEENT: Facies appeared symmetric. NEUROLOGIC: No obvious focal weakness was noted of her extremities with no distal lower extremity edema and good ankle dorsiflexion and plantar flexion. Functionally, she was contact guard assistance for [id number] and ambulated contact guard without an assistive device. ASSESSMENT: A 62-year-old female with the following problem list: 1. Generalized weakness, improved. 2. Acute respiratory failure, resolved. 3. Acute renal insufficiency, resolved. 4. Urinary tract infection. 5. Hypertension. 6. History of rheumatoid arthritis. 7. History of depression. 8. History of diabetes mellitus type 2. [facility] [address] [place] [address] CONSULTATION Name: YONG LUO Room #: 361-P [facility] IN M.R.#: [id number] Admission: 09/22/17 Attend Phys: Nadeem Correa MD Discharge: 09/26/17 Date of : 53 Report #: [id number] PLAN: The patient is doing well as far as functional mobility and physical therapy, thought that she could return back to the home setting with home health care. Note that the plan is for the patient to be discharged today. I am in agreement with this plan. Discussion with the patient and family member. By: [id number] [place] MD /nt
--- NOTE | ~2017-09-22 | EKG ---
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 : 1955 Requested By: Tim Chávez Order Number: [id number] MD: Chao Santana Measurements Intervals [place] Rate: 92 P: 65 SD: 154 QRS: 45 QRSD: 96 T: 43 QT: 397 QTc: 492 Interpretive Statements Sinus rhythm Borderline prolonged QT interval Compared to ECG 03/02/2017 02:43:15 Nonspecific change in the ST and T wave abnormality Electronically Signed On 09-23-2017 8:21:23 CDT by Chao Santana [email or web address] <ELECTRONICALLY SIGNED> By: Chao Santana MD, [facility] 09/23/17 0821 160 160 Chao Santana MD, [facility] /EPI
--- NOTE | ~2017-09-22 | HC ---
[facility] [place] [address] CONSULTATION Name: YONG LUO Room #: 361-P [facility] IN M.R.#: [id number] Admission: 09/22/17 Attend Phys: Nadeem Correa MD Discharge: 09/26/17 Date of : 53 Report #: [id number] THIS REPORT FOR: //name// CC: Nadeem Correa NO PCP PULMONARY CONSULTATION REFERRING PHYSICIAN: Dr. Correa. REASON FOR REFERRAL: Acute respiratory failure. HISTORY OF PRESENT ILLNESS: The patient is a 62-year-old -Beninese female who was brought to the Emergency Room with dyspnea. When she was seen in the ER, she was found to be hypersomnolent with acute respiratory distress. She was placed on BiPAP. A pulmonary consultation was requested. The patient is on chronic narcotics for chronic pain. She was given Narcan in the ER. She woken up, but also had emesis. This occurred when the second time Narcan was given. She is currently arousable. Tolerating BiPAP. Chest x-ray shows elevated right hemidiaphragm, which appears to be chronic, otherwise no obvious infiltrates. PAST MEDICAL HISTORY: Notable for chronic narcotics due to apparent chronic pain, rheumatoid arthritis, diabetes mellitus type 2, hypertension, depression, bipolar, anxiety disorder, history of GI bleed, past history of duodenal ulcers, diverticulosis. PAST SURGICAL HISTORY: Status post tonsillectomy, prior back surgery in 2000 and 2001, bilateral tubal ligation, broken fourth toe on the left foot. ALLERGIES: PROPOFOL, WHICH CAUSES "SEVERE AIRWAY REACTION," ASPIRIN CAUSES GI ULCERS, METFORMIN CAUSES DIARRHEA. HOME MEDICATIONS: Reviewed in the AUG. Home medications include MS Contin 30 mg p.o. b.i.d. She also takes Ambien. FAMILY HISTORY: Noncontributory. SOCIAL HISTORY: Lifetime nonsmoker. Denies any alcohol use. REVIEW OF SYSTEMS: Deferred as the patient is somnolent. PHYSICAL EXAMINATION: [facility] [address] [place] [address] CONSULTATION Name: YONG LUO Room #: 361-P [facility] IN [facility].#: [id number] Admission: 09/22/17 Attend Phys: Nadeem Correa MD Discharge: 09/26/17 Date of : 53 Report #: [id number] GENERAL: She is arousable, but falls back to sleep quite easily. VITAL SIGNS: Temperature is 99 degrees Fahrenheit, pulse is 85, respiratory rate is 15, blood pressure ____ mmHg, saturation 95%. HEENT: Normocephalic, atraumatic. NECK: Supple, without any lymphadenopathy or thyromegaly. CHEST: Breath sounds are fair due to poor effort. Otherwise, no obvious wheezes or rales. CARDIOVASCULAR: Normal S1, S2. There are no murmurs or gallop. There is no JVD. There is no carotid bruit. Pulses are 2+/4+ bilaterally. ABDOMEN: Soft, nontender. No organomegaly or masses felt. GENITOURINARY: Deferred. RECTAL: Deferred. EXTREMITIES: There is no edema, cyanosis or clubbing. LABORATORY DATA: Chest x-ray as mentioned above. CT head was unremarkable. Urine drug screen was positive for benzodiazepine and opiates. Arterial blood gas on admission revealed pH 7.14, pCO2 of 75, pO2 of 72 on 3 liters of O2. Electrolytes were grossly unremarkable except for creatinine of 2.9. Liver enzymes unremarkable. WBC 8700. Hemoglobin is normal. Platelets are normal. IMPRESSION: 1. Acute on chronic hypercapnic hypoxic respiratory failure in this 62-year-old -Beninese female. She is on chronic narcotics. She responded to Narcan. Her chest x-ray shows elevated right hemidiaphragm. Etiology is due to probable narcotic and benzodiazepine use. Chest x-ray does not show any obvious evidence of aspiration. 2. Elevated right hemidiaphragm, appears to be chronic over the past year. Etiology is undetermined. Suspect idiopathic. 3. Acute kidney injury. 4. Depression, bipolar disorder, anxiety disorder. 5. Diabetes mellitus type 2. 6. Hypertension. 7. Rheumatoid arthritis. 8. History of gastrointestinal bleed with duodenal ulcers. RECOMMENDATIONS: We will continue noninvasive positive pressure ventilation, withhold any narcotics or benzodiazepine. Wean O2 for saturation 90%. The patient should improve over time if it is all related to narcotics and benzodiazepine use. DVT and GI prophylaxis is recommended. [address] [address] CONSULTATION Name: YONG LUO Room #: 361-P [facility] IN M.R.#: [id number] Admission: 09/22/17 Attend Phys: Nadeem Correa MD Discharge: 09/26/17 Date of : 53 Report #: [id number] Thank you for this consultation. <ELECTRONICALLY SIGNED> By: Zackery Ca MD 09/26/17 1707 1340 [id number] Zackery Ca MD /nt
[2017-09-22 15:54] VITALS: BP 114/72
[2017-09-22 16:34] LABS: ABSOLUTE NEUTROPHILS 4.9 thou/uL (1.4-8.2); BASOPHILS 1.2 % (0.0-2.0); EOSINOPHILS 4.6 % (0.0-3.0); HEMATOCRIT 40.3 % (37.0-47.0); HEMOGLOBIN 13.2 gm/dL (12.0-15.0); LYMPHOCYTES 37.3 % (24.0-44.0); MCH 29.9 pg (26.0-34.0); MCHC 32.8 g/dL (28.0-37.0); MCV 91.3 fL (80.0-100.0); MONOCYTES 11.1 % (1.0-8.0); PLATELET COUNT 245 thou/uL (150-400); POLYS 45.8 % (36.0-66.0); RBC 4.42 mil/uL (4.20-5.00); RDW 17.1 % (10.5-14.5); WBC 10.6 thou/uL (4.0-11.0)
[2017-09-22 16:43] LABS: ANION GAP 7 mmol/L (7-16); BUN 39 mg/dL (7-18); CALCIUM 9.6 mg/dL (8.5-10.1); CHLORIDE 100 mmol/L (98-107); CO2 28 mmol/L (21-32); CREATININE 2.9 mg/dL (0.6-1.0); GLUCOSE 135 mg/dL (74-106); POTASSIUM 4.8 mmol/L (3.5-5.1); SODIUM 135 mmol/L (136-145)
[2017-09-22 16:48] LABS: BE(vivo) -4.2 mmol/L (-2 to +3); HCO3 24.4 mmol/L (22.0-26.0); PCO2 60.1 mmHg (35.0-45.0); PO2 75.5 mmHg (80.0-100.0); sO2 92.2 % (92.0-98.0)
[2017-09-22 16:49] LABS: pH 7.226 (7.360-7.450)
[2017-09-22 16:52] LABS: ALBUMIN 3.5 g/dL (3.4-5.0); MAGNESIUM 2.1 mg/dL (1.8-2.4); SGOT 32 U/L (15-37); SGPT 23 U/L (30-65); TOTAL BILIRUBIN 0.8 mg/dL (<0.1-1.0); TOTAL PROTEIN 7.6 g/dL (6.4-8.2); TROPONIN-I < 0.04 ng/mL (<0.06)
[2017-09-22 17:13] LABS: URINE BILIRUBIN NEGATIVE (Negative); URINE BLOOD NEGATIVE (Negative); URINE CLARITY CLEAR; URINE COLOR YELLOW; URINE GLUCOSE-RANDOM* NEGATIVE (Negative); URINE KETONES NEGATIVE (Negative); URINE LEUKOCYTES-REFLEX 1+ (Negative); URINE NITRITE-REFLEX POSITIVE (Negative); URINE PROTEIN (DIPSTICK) NEGATIVE (Negative); URINE SPECIFIC GRAVITY >= 1.030 (1.005-1.035); URINE UROBILINOGEN 0.2 E.U./dl (0.2-1.0)
[2017-09-22 17:21] LABS: AMP/METHAMP Negative (Negative); BARBITURATES Negative (Negative); BENZODIAZEPINES POSITIVE (Negative); COCAINE Negative (Negative); METHADONE Negative (Negative); OPIATES POSITIVE (Negative); PCP Negative (Negative)
[2017-09-22 17:22] LABS: CASTS None Seen /LPF (None Seen); CRYSTALS None Seen /LPF (None Seen); SQUAMOUS 0-3 Few /LPF (0-3); URINE RBC None Seen /HPF (0-2); URINE WBC-REFLEX 6-15 Few /HPF (0-5)
[2017-09-22] MEDS ORDERED: LISINOPRIL20 MG PO (17:27)
[2017-09-22] MEDS ORDERED: ALDACTONE25 MG PO (17:28)
[2017-09-22 19:05] VITALS: BP 147/70
[2017-09-22 20:00] VITALS: BP 119/54
[2017-09-22 20:33] LABS: BE(vivo) -5.3 mmol/L (-2 to +3); HCO3 25.2 mmol/L (22.0-26.0); PCO2 75.5 mmHg (35.0-45.0); PO2 72.7 mmHg (80.0-100.0); pH 7.142 (7.360-7.450)
[2017-09-22 21:00] VITALS: BP 125/47
[2017-09-22 22:00] VITALS: BP 142/53
[2017-09-22 22:39] LABS: BE(vivo) -5.7 mmol/L (-2 to +3); HCO3 24.5 mmol/L (22.0-26.0); PO2 106.5 mmHg (80.0-100.0); sO2 96.2 % (92.0-98.0)
[2017-09-22 22:40] LABS: pH 7.155 (7.360-7.450)
[2017-09-22 23:00] VITALS: BP 145/70
[2017-09-23] VITALS (18 sets, daily range): BP systolic 93–165; BP diastolic 44–88
[2017-09-23 05:32] LABS: HEMOGLOBIN 12.1 gm/dL (12.0-15.0); MCH 30.1 pg (26.0-34.0); MCHC 32.7 g/dL (28.0-37.0); RBC 4.03 mil/uL (4.20-5.00); WBC 8.7 thou/uL (4.0-11.0)
[2017-09-23 05:51] LABS: CALCIUM 8.4 mg/dL (8.5-10.1)
[2017-09-23 05:58] LABS: CREATININE 1.4 mg/dL (0.6-1.0); POTASSIUM 5.9 mmol/L (3.5-5.1)
[2017-09-23 10:45] LABS: BE(vivo) -2.1 mmol/L (-2 to +3); HCO3 26.6 mmol/L (22.0-26.0); PCO2 65.1 mmHg (35.0-45.0); PO2 71.5 mmHg (80.0-100.0); pH 7.229 (7.360-7.450); sO2 90.9 % (92.0-98.0)
[2017-09-23 15:08] LABS: CALCIUM 8.6 mg/dL (8.5-10.1); CREATININE 1.1 mg/dL (0.6-1.0); POTASSIUM 4.8 mmol/L (3.5-5.1)
[2017-09-24] VITALS (28 sets, daily range): BP systolic 122–147; BP diastolic 59–106
[2017-09-24 05:16] LABS: BE(vivo) 0.6 mmol/L (-2 to +3); HCO3 27.4 mmol/L (22.0-26.0); PCO2 53.9 mmHg (35.0-45.0); PO2 65.8 mmHg (80.0-100.0); sO2 91.2 % (92.0-98.0)
[2017-09-24 05:17] LABS: pH 7.324 (7.360-7.450)
[2017-09-24 07:02] LABS: HEMATOCRIT 34.9 % (37.0-47.0); HEMOGLOBIN 11.4 gm/dL (12.0-15.0); MCH 30.1 pg (26.0-34.0); MCHC 32.7 g/dL (28.0-37.0); RBC 3.79 mil/uL (4.20-5.00); RDW 16.4 % (10.5-14.5); WBC 7.4 thou/uL (4.0-11.0)
[2017-09-24 07:11] LABS: CALCIUM 8.6 mg/dL (8.5-10.1); CREATININE 0.9 mg/dL (0.6-1.0); MAGNESIUM 1.9 mg/dL (1.8-2.4); POTASSIUM 4.1 mmol/L (3.5-5.1)
[2017-09-25 03:40] VITALS: BP 138/78
[2017-09-25 05:45] LABS: HEMATOCRIT 37.6 % (37.0-47.0); HEMOGLOBIN 12.3 gm/dL (12.0-15.0); MCH 29.8 pg (26.0-34.0); MCHC 32.6 g/dL (28.0-37.0); MCV 91.3 fL (80.0-100.0); RBC 4.12 mil/uL (4.20-5.00); RDW 16.7 % (10.5-14.5); WBC 7.6 thou/uL (4.0-11.0)
[2017-09-25 06:02] LABS: CALCIUM 8.4 mg/dL (8.5-10.1); CREATININE 0.9 mg/dL (0.6-1.0); MAGNESIUM 1.7 mg/dL (1.8-2.4)
[2017-09-25 07:21] VITALS: BP 150/88
[2017-09-25 11:14] VITALS: BP 153/79
[2017-09-25 15:10] VITALS: BP 139/80
[2017-09-25 20:00] VITALS: BP 146/84
[2017-09-26 05:52] LABS: HEMATOCRIT 41.4 % (37.0-47.0); HEMOGLOBIN 13.8 gm/dL (12.0-15.0); MCH 30.3 pg (26.0-34.0); MCHC 33.3 g/dL (28.0-37.0); RBC 4.55 mil/uL (4.20-5.00); RDW 17.5 % (10.5-14.5); WBC 6.9 thou/uL (4.0-11.0)
[2017-09-26 06:07] LABS: CALCIUM 8.9 mg/dL (8.5-10.1); CREATININE 0.9 mg/dL (0.6-1.0); MAGNESIUM 1.8 mg/dL (1.8-2.4); POTASSIUM 3.4 mmol/L (3.5-5.1)
[2017-09-26 08:00] VITALS: BP 139/94
[2017-09-26] MEDS ORDERED: KEFLEX500 M1 PO (08:37)
[2017-09-26 10:25] VITALS: BP 139/94
[2017-09-26 12:00] VITALS: BP 162/83
== END 2017-09-26 14:10 | disposition home or self-care (01) | DRG 682 ==
LOC: ER 15:49 → ICU 17:00 → EROBS 17:00 → ICU 18:50 → 3W 09-24 17:32 → ENTRNSPT 09-26 13:53 → EDTRNSPTSTS 09-26 13:56 → 3W 09-26 14:10
PROVIDERS: Emergency Medicine; Internal Medicine
PROC: 5A09357 Assistance with Respiratory Ventilation, Less than 24 Consecutive Hours, Continuous Positive Airway Pressure (ICD-10-PCS; principal; 2017-09-22)
PROC: 5A09357 Assistance with Respiratory Ventilation, Less than 24 Consecutive Hours, Continuous Positive Airway Pressure (ICD-10-PCS; 2017-09-23)
PROC: 5A09357 Assistance with Respiratory Ventilation, Less than 24 Consecutive Hours, Continuous Positive Airway Pressure (ICD-10-PCS; 2017-09-24)
PROC: 5A09357 Assistance with Respiratory Ventilation, Less than 24 Consecutive Hours, Continuous Positive Airway Pressure (ICD-10-PCS; 2017-09-25)
DX: N17.9 Acute kidney failure, unspecified (principal); J96.22 Acute and chronic respiratory failure with hypercapnia; J96.21 Acute and chronic respiratory failure with hypoxia; N39.0 Urinary tract infection, site not specified; F11.20 Opioid dependence, uncomplicated; E11.9 Type 2 diabetes mellitus without complications; I10 Essential (primary) hypertension; F31.9 Bipolar disorder, unspecified; G89.29 Other chronic pain; M06.9 Rheumatoid arthritis, unspecified; Z88.6 Allergy status to analgesic agent; Z88.8 Allergy status to other drugs, medicaments and biological substances; Z85.038 Personal history of other malignant neoplasm of large intestine; Z79.4 Long term (current) use of insulin; Z79.899 Other long term (current) drug therapy; Z28.21 Immunization not carried out because of patient refusal
CPT/HCPCS: 10078; 10779

== ENCOUNTER → 2018-09-14 | Outpatient (CLI) | payer OTHER ==
[~2018-09-14] MED LIST changes: +KEFLEX500 M1 PO
== END ==
LOC: RAD 15:28
DX: M54.12 Radiculopathy, cervical region (principal)

== ENCOUNTER → 2018-09-27 | Outpatient (CLI) | payer OTHER | LOC: MRI 10:22 | DX: M47.22 Other spondylosis with radiculopathy, cervical region (principal); M50.121 Cervical disc disorder at C4-C5 level with radiculopathy; M48.02 Spinal stenosis, cervical region; M25.78 Osteophyte, vertebrae ==

== ENCOUNTER 2019-03-19 16:58 | Inpatient (IN) | payer OTHER ==
[~2019-03-19] VITALS: Ht 160 cm; Wt 94.9 kg
[2019-03-19 17:09] VITALS: BP 137/87
[2019-03-19 18:04] LABS: ABSOLUTE NEUTROPHILS 5.9 thou/uL (1.4-8.2); HEMATOCRIT 48.9 % (37.0-47.0); HEMOGLOBIN 16.1 gm/dL (12.0-15.0); LYMPHOCYTES 31.6 % (24.0-44.0); MCH 31.3 pg (26.0-34.0); MCV 94.9 fL (80.0-100.0); MONOCYTES 4.7 % (1.0-8.0); PLATELET COUNT 301 thou/uL (150-400); POLYS 61.7 % (36.0-66.0); RBC 5.15 mil/uL (4.20-5.00); RDW 15.1 % (10.5-14.5); WBC 9.6 thou/uL (4.0-11.0)
[2019-03-19 18:13] LABS: CALCIUM 9.9 mg/dL (8.5-10.1); CREATININE 1.2 mg/dL (0.6-1.0)
[2019-03-19 18:15] LABS: ALBUMIN 3.8 g/dL (3.4-5.0); TOTAL BILIRUBIN 0.5 mg/dL (<0.1-1.0); TOTAL PROTEIN 8.9 g/dL (6.4-8.2)
[2019-03-19 21:16] LABS: BE(vivo) -3.2 mmol/L (-2 to +3); HCO3 21.6 mmol/L (22.0-26.0); PCO2 38.2 mmHg (35.0-45.0); PO2 92.2 mmHg (80.0-100.0); sO2 96.9 % (92.0-98.0)
[2019-03-19 22:54] VITALS: BP 148/101
[2019-03-19 23:15] VITALS: BP 149/87
[2019-03-19 23:35] LABS: URINE BILIRUBIN NEGATIVE (Negative); URINE BLOOD NEGATIVE (Negative); URINE CLARITY CLEAR; URINE COLOR YELLOW; URINE GLUCOSE-RANDOM* 2+ (Negative); URINE KETONES NEGATIVE (Negative); URINE LEUKOCYTES-REFLEX NEGATIVE (Negative); URINE NITRITE-REFLEX NEGATIVE (Negative); URINE PROTEIN (DIPSTICK) NEGATIVE (Negative); URINE SPECIFIC GRAVITY <= 1.005 (1.005-1.035); URINE UROBILINOGEN 0.2 E.U./dl (0.2-1.0)
--- NOTE | 2019-03-20 00:21 | NUR ---
admission note: denies pain at this time. she has been having abd pain for the past two to three days. no medications taken at home on 03/19/19 before coming into hospital. she is wanting her morphine po bid ordered. she has been having loose stools at home all day on 03/19/19. no nausea at this time. calm and cooperative. oriented to room and surroundings.
[2019-03-20 03:24] VITALS: BP 149/81
[2019-03-20 08:00] VITALS: BP 134/85
--- NOTE | 2019-03-20 08:02 | EKG ---
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 : 1955 Requested By: Aristeo Jaime Order Number: [id number] MD: Chao Santana Measurements Intervals [place] Rate: 90 P: 45 AR: 161 QRS: 43 QRSD: 81 T: 242 QT: 360 QTc: 441 Interpretive Statements Sinus rhythm Nonspecific repol abnormality, diffuse leads Compared to ECG 09/22/2017 16:02:55 ST and T wave abnormality is more pronounced Electronically Signed On 03-20-2019 8:02:32 CDT by Chao Santana [email or web address] <ELECTRONICALLY SIGNED> By: Chao Santana MD, [facility] [id number] [phone] Chao Santana MD, [facility] /EPI
--- NOTE | 2019-03-20 08:03 | EKG ---
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
[2019-03-20 11:16] LABS: CHOLESTEROL 175 mg/dL (<200); HDL CHOLESTEROL 49 mg/dL (>40); LDL CHOLESTEROL 107 mg/dL (<100); TC:HDL 3.6 Ratio (Not establshd); TRIGLYCERIDE 98 mg/dL (<150); VLDL 20 mg/dL (<40)
[2019-03-20 12:09] VITALS: BP 134/85
[2019-03-20 12:40] VITALS: BP 126/73
--- NOTE | 2019-03-20 12:40 | 2DMMODE ---
[facility] [address] [place] [address] 2 D/M-MODE ECHOCARDIOGRAM Name: YONG LUO Room #: 351-P [facility] IN M.R.#: [id number] Admission: 03/19/19 Attend Phys: Nadeem Correa, Discharge: Date of : 53 Report #: [id number] THIS REPORT FOR: //name// APPROVED REPORT Study performed: 03/20/2019 11:23:56 EXAM: Comprehensive 2D, Doppler, and color-flow Echocardiogram Patient Location: Echo lab Room #: [facility] Status: routine BSA: 1.97 HR: 74 bpm BP: 134/85 mmHg Rhythm: NSR Indications Chest Pain Elevated toponin. Questioning ACS. Hx: DM, HTN. 2D Dimensions RVDd: 30.92 mm IVSd: 13.20 (7-11mm) LVOT Diam: 20.95 (18-24mm) LVDd: 38.03 mm PWd: 12.00 (7-11mm) Ascending Ao: 26.37 (22-36mm) LVDs: 19.94 (25-40mm) Aortic Root: 32.46 mm Volumes Left Atrial Volume (Systole) Single Plane 4CH: 43.11 mL Single Plane 2CH: 39.66 mL LA ESV Index: 22.00 mL/m2 Aortic Valve AoV Peak Bill.: 1.86 m/s AO Peak Gr.: 13.79 mmHg LVOT Max P.54 mmHg LVOT Max V: 1.37 m/s NAILA Vmax: 2.55 cm2 Mitral Valve E/A Ratio: 0.8 MV Decel. Time: 230.53 ms MV E Max Bill.: 0.68 m/s MV A Bill.: 0.84 m/s MV PHT: 66.85 ms [facility] [place] [address] 2 D/M-MODE ECHOCARDIOGRAM Name: YONG LUO Room #: 351-P [facility] IN .R.#: [id number] Admission: 03/19/19 Attend Phys: Nadeem Correa, Discharge: Date of : 53 Report #: [id number] IVRT: 76.12 ms Pulmonary Valve PV Peak Bill.: 0.96 m/s PV Peak Gr.: 3.66 mmHg Pulmonary Vein P Vein S: 0.69 m/s P Vein A: 0.33 m/s P Vein D: 0.45 m/s P Vein A Dur.: 138.4 msec P Vein S/D Ratio: 1.53 Tricuspid Valve TR Peak Bill.: 2.91 m/s RAP Estimate: 10.00 mmHg TR Peak Gr.: 34.00 mmHg PA Pressure: 44.00 mmHg Left Ventricle The left ventricle is normal size. There is normal LV segmental wall motion. Mild concentric left ventricular hypertrophy. Left ventricular systolic function is severely decreased. LVEF is 65-70%. Mild diastolic dysfunction is present (impaired relaxation pattern). Right Ventricle The right ventricle is normal size. The right ventricular systolic function is normal. Atria Left atrium is mildly dilated. The right atrium size is normal. Aortic Valve The aortic valve is normal in structure, mildly thickened. No aortic regurgitation is present. There is no aortic valvular stenosis. Mitral Valve The mitral valve is normal in structure. Trace mitral regurgitation. Tricuspid Valve The tricuspid valve is normal in structure. Mild tricuspid regurgitation. Estimated PAP is 40-45mmHg. Pulmonic Valve The pulmonary valve is normal in structure. Mild pulmonic regurgitation. [facility] [address] [place] [address] 2 D/M-MODE ECHOCARDIOGRAM Name: YONG LUO Holli Room #: 351-P [facility] IN ..#: [id number] Admission: 03/19/19 Attend Phys: Nadeem Correa, Discharge: Date of : 53 Report #: [id number] Great Vessels The aortic root is normal in size. The ascending aorta is normal in size. IVC is normal in size and collapses <50% with inspiration. Pericardium There is no pericardial effusion. <Conclusion> The left ventricle is normal size. LVEF is 65-70%. Left atrium is mildly dilated. The aortic valve is normal in structure, mildly thickened. The mitral valve is normal in structure. Trace mitral regurgitation. The tricuspid valve is normal in structure. Mild tricuspid regurgitation. Estimated PAP is 40-45mmHg. The pulmonary valve is normal in structure. Mild pulmonic regurgitation. There is no pericardial effusion. <ELECTRONICALLY SIGNED> By: Timothy Montoya MD 03/20/19 1240 1240 39 Timothy Montoya MD /INF
--- NOTE | 2019-03-20 14:25 | NUR ---
PT ALERT AND ORIENTED TIMES FOUR. VSS, 92%RA, SR ON TELE, IVF INFUSING PER ORDER. PT TOLERATES MEDS AND CLEAR LIQUID DIET. SCHEDULED PAIN MEDICATIONS CONTOLLING PAIN WELL. PT UP TO RESTROOM WITH STANDBY ASSIST. PT SON AT BEDSIDE THIS AFTERNOON. PT SLOWLY PROGRESSING TOWRADS POC GOALS.
--- NOTE | 2019-03-20 14:47 | NUR ---
INITIAL ASSESSMENT; Pt evaluated for d/c planning needs. Reviewed chart and spoke with nurse, pt and son at bedside. Pt is alert and oriented. Pt lives alone in apartment and her older son is her paid caregiver through [employer]. Caregiver is at her apartment 3-4 times/week. Pt has walker, cane and stool riser, and has been on service with [employer] in the past. Pt is hopeful she will be able to return home on d/c from hospital. Will remain available to assist as needed.
--- NOTE | 2019-03-20 15:45 | EKG ---
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 : 1955 Requested By: Lola Sandoval Order Number: [id number] MD: Blayne Espinal Measurements Intervals [place] Rate: 72 P: 44 SD: 152 QRS: 40 QRSD: 86 T: 2 QT: 424 QTc: 465 Interpretive Statements Sinus rhythm Borderline T wave abnormalities Compared to ECG 03/19/2019 20:57:14 T-wave abnormality now present ST (T wave) deviation no longer present Electronically Signed On 03-20-2019 15:44:56 CDT by Blayne Espinal [email or web address] <ELECTRONICALLY SIGNED> By: Blayne Espinal MD 03/20/19 1544 1039 1039 Blayne Espinal MD /EPI
[2019-03-20 16:46] VITALS: BP 126/68
[2019-03-20 20:26] VITALS: BP 149/81
[2019-03-21 06:11] LABS: HEMATOCRIT 39.4 % (37.0-47.0); MCHC 32.5 g/dL (28.0-37.0); MCV 95.4 fL (80.0-100.0); RBC 4.13 mil/uL (4.20-5.00)
[2019-03-21 06:22] LABS: HEMOGLOBIN 12.8 gm/dL (12.0-15.0)
[2019-03-21 06:30] LABS: CALCIUM 8.2 mg/dL (8.5-10.1); POTASSIUM 3.7 mmol/L (3.5-5.1)
--- NOTE | 2019-03-21 06:45 | NUR ---
PT MAKING SLOW PROGRESS TOWARDS GOALS. PT STATES THAT SHE DID NOT HAVE ANY BOWEL MOVEMENTS OVERNIGHT. HAS DENIED ANY ABDOMINAL PAIN OR NAUSEA OVERNIGHT.
[2019-03-21 07:10] VITALS: BP 108/66
[2019-03-21 07:12] LABS: GLYCOHEMOGLOBIN (HGB A1C) 9.9 % (4.8-5.6)
[2019-03-21 12:00] VITALS: BP 123/62
--- NOTE | 2019-03-21 12:09 | NUR ---
SW reviewed chart and spoke with nursing and attending physician. GI consulted today. Pt to have an EGD later today. Plan is for pt to return home when medically stable. WOOD is following to assist as needed with discharge planning.
--- NOTE | 2019-03-21 15:27 | NUR ---
Assumed care approx. 0700 this AM. Patient has reported no abdominal pain, nausea, vomiting or diarrhea today. Dr. Quintanilla at bedside today to speak with patient; plan tomorrow for EGD--consent signed by patient. No new changes so far this shift. Still waiting on patient to have a BM for stool sample. Will continue to monitor. Patient progressing toward plan of care goals.
[2019-03-21 15:35] VITALS: BP 142/72
[2019-03-21 20:23] VITALS: BP 172/85
[2019-03-22] VITALS (7 sets, daily range): BP systolic 138–177; BP diastolic 81–92
--- NOTE | 2019-03-22 06:23 | NUR ---
PT MAKING PROGRESS TOWARDS GOALS. SCHEDULED MORPHINE CR FOR BACK PAIN. HAS DENIED ANY ABDOMINAL PAIN OVERNIGHT. DENIES ANY NAUSEA. NPO EXCEPT SIP OF WATER WITH AM MED FOR EGD TODAY.
[2019-03-22] MEDS ORDERED: PEPCID20 MG PO (11:29)
--- NOTE | 2019-03-22 13:49 | HC ---
[facility] [place] [address] CONSULTATION Name: YONG LUO Room #: 351-P ADM IN M.R.#: [id number] Admission: 03/19/19 Attend Phys: Thaddeus Reese MD Discharge: Date of : 53 Report #: [id number] THIS REPORT FOR: //name// CC: Thaddeus Garcia DO DATE OF SERVICE: 03/21/2019 GASTROENTEROLOGY CONSULTATION She is a patient of Dr. Ric Garcia and Dr. Thaddeus Reese. CHIEF COMPLAINT: This is a very pleasant 63-year-old -British female who is well known to us from previous evaluations whom we are asked to evaluate for possible etiologies of acute diarrhea that began approximately 3 days ago on Tuesday. The patient states that the first day, she had multiple stools and was experiencing some epigastric pain just above the umbilicus. Tuesday, she had 10 loose stools. The pain in her epigastrium continued. Tuesday, she had less pain and had no stools and Tuesday, today, she has had no stools and still has some complaints of epigastric tenderness. She had some nausea upon presentation, but that has resolved. PAST MEDICAL HISTORY: Significant for gastroparesis. She has a history of gastric ulcers, postbulbar duodenal ulcers, colitis. She has a history of sigmoid diverticulosis and diverticulitis, hypothyroidism. Her TSH is elevated at 4.421 incidentally and she may need to have her thyroid dose increased and she has a history of fatty liver. This concerns me because she has been taking methotrexate for her rheumatoid arthritis. Methotrexate can cause cirrhosis of the liver without any indication or warning sign that it is doing so until the liver becomes nodular. Liver enzymes remain normal throughout. I think that because she does have fatty liver, I would recommend that she have an outpatient liver biopsy done to make certain that we understand exactly where she is and discontinue methotrexate administration. It is possible that she may need to stop it, but it would be reassuring to know that her liver shows no damage from the methotrexate if she is going to continue taking it. She also has a history of diabetes mellitus, hypertension, hyperlipidemia, hypothyroidism and rheumatoid arthritis. PAST SURGICAL HISTORY: Significant for bilateral cataract surgery. She has had benign breast nodule removed, bilateral tubal ligation, back surgery for herniated disk. ALLERGIES: METFORMIN THAT CAUSES DIARRHEA. ASPIRIN, SHE DOES NOT KNOW WHY SHE IS ALLERGIC TO THAT AND DOES NOT RECALL ANY REACTION. SHE SAID SHE IS ALLERGIC [address] [address] CONSULTATION Name: YONG LUO Room #: 351-P [facility] IN .R.#: [id number] Admission: 03/19/19 Attend Phys: Thaddeus Reese MD Discharge: Date of : 53 Report #: [id number] TO PROPOFOL, BUT SHE DOES NOT KNOW WHY. CURRENT MEDICATIONS: Include MS Contin, Remeron, methotrexate, lisinopril, Synthroid, Levemir insulin, NovoLog insulin, Remicade infusions, vitamin D, Lipitor, and Ventolin. SOCIAL HISTORY: She does not smoke. She does not drink alcohol. FAMILY HISTORY: Significant for colon cancer in her sister who developed colon cancer in her 50s and in her 60s of complications of colon cancer. There is no history of Crohn's disease or ulcerative colitis. REVIEW OF SYSTEMS: She denies any dysphagia, odynophagia, gastroesophageal reflux, hiatal hernia. She has had gastric and duodenal ulcers including a postbulbar ulcer and has a normal gastrin level. She denies any constipation. She has had acute diarrhea as above. She denies any hematemesis, hematochezia or melena. She says her weight is stable, her appetite is generally good. She has a history of diverticulosis of the colon and had an episode of diverticulitis that was seen on colonoscopy in 2014. She denies any jaundice, hepatitis, cholelithiasis, cholecystitis or pancreatitis. She has had a fatty liver on CT scan. She does have a history of gastroparesis as documented on nuclear medicine gastric emptying study and was on erythromycin in the past for this, but apparently stopped taking it. She is not complaining of any nausea other than that was associated with acute diarrhea and it has resolved. PHYSICAL EXAMINATION: GENERAL: Reveals a well-developed, well-nourished 63-year-old -British female in no obvious distress at the time of my examination, who is awake, alert, oriented x 4 and cooperative and pleasant to converse with. VITAL SIGNS: Blood pressure is 108/66, temperature 36.3, pulse 61, respirations are 18, her O2 sat on room air is 93%. HEENT: She appears normocephalic, atraumatic and anicteric. HEART: Rate and rhythm are regular with a normal S1 and S2. LUNGS: Clear bilaterally. ABDOMEN: Soft. Bowel sounds are present in all 4 quadrants. It is mildly distended. There is no palpable organomegaly or mass. There is tenderness in the supraumbilical region, lower epigastric area, but no rebound or guarding. EXTREMITIES: Warm and dry. No peripheral cyanosis, clubbing or edema. NEUROLOGIC: She appears grossly intact without lateralizing signs, but I did not test her extensively neurologically. SIGNIFICANT LABORATORY DATA: Electrolytes are within normal limits except for chloride of 109. BUN and creatinine are normal. Glucose is elevated on admission at 277 and 84 today. AST is 41, ALT is 46, alkaline phosphatase 132, mildly elevated. Total bilirubin and direct bilirubin are normal. Calcium 8.2. Troponin was 0.06, 0.9 and 0.41 respectively. T4 is 1.0. T3 is 2.36. D-dimer [facility] [address] [place] [address] CONSULTATION Name: YONG LUO Room #: 351-P ADM IN [facility]#: [id number] Admission: 03/19/19 Attend Phys: Thaddeus Reese MD Discharge: Date of : 53 Report #: [id number] was 1.49. CBC was within normal limits except for RBC count of 4.13 that is slightly low and RDW of 15. TSH is 4.421 despite being on levothyroxine, may need to increase her dose. Hemoglobin A1c is 9.9, average glucose 237. Urinalysis shows 2+ glucose, negative for protein and blood. She was mildly acidotic on admission with a bicarbonate of 21.6. She was on 13 liters per nasal cannula on admission. Her pH was 7.37, pCO2 of 38.2, pO2 of 92.2, bicarbonate 21.6, base excess 3.2. Lactate was 1.72. Oxygen sat was 96.9. RADIOLOGY EVALUATIONS: She had a CTA of the chest because of the elevated D-dimer and there was no evidence of pulmonary emboli or aortic dissection. She had bilateral lower lobe atelectasis and a mild right perihilar atelectasis. She has marked elevation of the right hemidiaphragm, small bilateral pleural effusions and hepatic steatosis. CT scan of the abdomen and pelvis showed a large right renal cortical cyst and fluid in the colon and small bowel loops consistent with her history of diarrhea. She had Dopplers of the lower extremities and those were normal. IMPRESSION: 1. Acute diarrhea that appears to have resolved for the past 36 hours. It was associated with chills and some supraumbilical abdominal pain and nausea. It may have been something that she ate that upset her stomach. I doubt a virus would run its course this quickly. 2. History of gastric ulcers and postbulbar duodenal ulcers, but a normal gastrin level. 3. Diabetes mellitus. I suspect gastroparesis. 4. Rheumatoid arthritis. The patient is on Remicade and methotrexate. She has fatty liver. This may be from the methotrexate as there is no marker for damage that might be incurred from the methotrexate. Liver biopsy is recommended to be sure the methotrexate is not causing damage as it can cause cirrhosis with normal liver enzymes. This biopsy can be done as an outpatient. 5. Hypertension. 6. Hyperlipidemia. 7. Hypothyroidism. The patient's TSH is elevated despite being on Synthroid and we may need to increase her dose of Synthroid. 8. Family history of colon cancer in her sister when she was in her 50s. The patient has had colonoscopies performed, last one 5 years ago and has not had colon polyps or colon cancer thus far. I would recommend she have a followup colonoscopy at 5 years from the last one, which would be in 2019. 9. Status post bilateral cataract surgery, benign breast biopsies, bilateral tubal ligation and surgery for herniated lumbar disk. 10. The patient has an asymptomatic right renal cortical cyst, 6.6 cm. 11. History of diverticulosis and sigmoid diverticulitis. 12. Elevated right hemidiaphragm of uncertain etiology. RECOMMENDATIONS: My recommendations are as follows: 1. I think the diarrhea has run its course. It seems back to normal and she [facility] [address] [place] [address] CONSULTATION Name: YONG LUO Room #: 351-P [facility] IN [place]#: [id number] Admission: 03/19/19 Attend Phys: Thaddeus Reese MD Discharge: Date of : 53 Report #: [id number] has been eating and drinking. We will await the stool studies, however. 2. Epigastric tenderness persists. We will plan to do an EGD in the morning because of her ulcer history. H2 receptor antagonists are ordered for now. We will keep her n.p.o. after midnight. The patient is agreeable with this plan. She is ALLERGIC TO PROPOFOL. She does have an elevated right hemidiaphragm of uncertain etiology. I am uncertain if this will cause complications for sedation. 3. Outpatient liver biopsy as she is on methotrexate for rheumatoid arthritis and has a fatty liver. 4. The patient needs outpatient colonoscopy after discharge due to family history of colon cancer in her sister while she was in her 50s. The patient's last colonoscopy was in 2014. She is ALLERGIC TO PROPOFOL. Thank you very much once again for allowing me to participate in her care. <ELECTRONICALLY SIGNED> By: Ellen Vaughn DO 03/22/19 1349 [id number] Ellen Vaughn DO /nt
--- NOTE | 2019-03-22 16:12 | NUR ---
DISCHARGE NOTE: SW reviewed chart and spoke with nursing and attending physician. Pt had EGD earlier today and will discharge home. No discharge needs identified at this time, but is available to assist should needs arise.
--- NOTE | 2019-03-22 18:16 | NUR ---
Assumed care approx. 0700 this AM. Patient taken for EGD this AM-report from PACU was nothing acute and awaiting biopsy results. Patient tolerated diet upon arrival. No nausea, vomiting, or diarrhea today. Discharge orders recieved from Dr. Reese. IV taken out and tele dc'd. Patient ride to get her-taken by wheelchair with nursing staff. Discharge instructions given to patient. Patient instructed to follow up with PCP and Dr. Quintanilla post EGD procedure for biopsy results.
--- NOTE | 2019-03-23 16:06 | PATH ---
[facility] [place] [address] PATHOLOGY RPT PROCEDURE Name: GEOVANNA LUO Room #: 351-P DIS IN M.R.#: [id number] Admission: 03/19/19 Date of : 53 Discharge: 03/22/19 Report #: [id number] Path Case #: [id number] [facility] Accession Number: [id number] . 01 Material submitted: . PART A: pylorus - PREPYLORIC POLYP PART B: stomach - ANTRAL BIOPSY TO R/O H. PYLORI . 01 Clinical history: . Abdominal pain, nausea with vomiting . 02 Diagnosis: A. Polyp, prepyloric polyp, endoscopic biopsy: - Compatible with an inflammatory hyperplastic polyp. - Negative for dysplasia. . B. Gastric mucosa, antral rule out H. pylori, endoscopic biopsy: - Mild reactive gastropathy. - Negative for intestinal metaplasia or atrophy. - Negative for Helicobacter pylori (properly controlled immunohistochemical stain performed). . (IUV:be; 03/23/2019) MBR 03/23/2019 1526 Local . 02 Electronically signed: . Seema Fernández MD, Pathologist NPI- [id number] . 01 Gross description: . A. Received in formalin labeled "Geovanna Luo, pre pyloric polyp," is a 0.6 x 0.5 x 0.5 cm polypoid piece of britton soft tissue. The margin is inked and the tissue is sectioned perpendicular to the margin and submitted entirely in cassette A1. . B. Received in formalin labeled "Geovanna Luo, antral BX to rule out H. pylori," is a single segment of britton soft tissue measuring 0.5 cm in maximum dimension. The specimen is entirely submitted in cassette B1. (TSD; 03/22/2019) TOB/TOB 03/22/20191951 Local . 02 Pathologist provided ICD-10: K31.9, K31.7 . 02 CPT . 132476, 690106, O65325 Specimen Comment: A courtesy [place] of [place] [address] PATHOLOGY RPT PROCEDURE Name: GEOVANNA LUO Holli Room #: 351-P DIS IN M.R.#: [id number] Admission: 03/19/19 Date of : 53 Discharge: 03/22/19 Report #: [id number] Path Case #: [id number] Specimen Comment: [phone], , . Specimen Comment: Report sent to ,DR LUO / DR SY Performed at: [address], [place], [place] [id number] MD Tayo Boyle MD Phone: [phone] Performed at: [address] [id number] MD Seema Fernández MD Phone: [phone]
== END 2019-03-22 18:16 | disposition home or self-care (01) | DRG 391 ==
LOC: ER 16:58 → EROBS 22:02 → 3W 22:02
PROVIDERS: Nurse Practitioner Acute Care; Physician Assistant; ADMIT Hospitalist
DX: K31.819 Angiodysplasia of stomach and duodenum without bleeding (principal); J96.01 Acute respiratory failure with hypoxia; K57.32 Diverticulitis of large intestine without perforation or abscess without bleeding; F11.20 Opioid dependence, uncomplicated; K52.9 Noninfective gastroenteritis and colitis, unspecified; E78.5 Hyperlipidemia, unspecified; F32.9 Major depressive disorder, single episode, unspecified; F41.9 Anxiety disorder, unspecified; M06.9 Rheumatoid arthritis, unspecified; E03.9 Hypothyroidism, unspecified; K74.60 Unspecified cirrhosis of liver; I12.9 Hypertensive chronic kidney disease with stage 1 through stage 4 chronic kidney disease, or unspecified chronic kidney disease; E11.22 Type 2 diabetes mellitus with diabetic chronic kidney disease; G89.29 Other chronic pain; N18.9 Chronic kidney disease, unspecified; Z60.2 Problems related to living alone; Z82.49 Family history of ischemic heart disease and other diseases of the circulatory system; Z79.4 Long term (current) use of insulin; Z88.6 Allergy status to analgesic agent; Z88.8 Allergy status to other drugs, medicaments and biological substances; Z98.42 Cataract extraction status, left eye; Z98.41 Cataract extraction status, right eye; Z80.0 Family history of malignant neoplasm of digestive organs
CPT/HCPCS: 10879; 70005

== ENCOUNTER 2020-02-12 20:11 | Emergency (ER) | payer OTHER ==
[~2020-02-12] VITALS: Ht 160 cm; Wt 99.8 kg
[~2020-02-12 20:11] MED LIST changes: +PEPCID20 MG PO; +REMERON15 M2 PO
[2020-02-12 20:55] LABS: BASOPHILS 0.7 % (0.0-2.0); EOSINOPHILS 0.1 % (0.0-3.0); HEMATOCRIT 47.1 % (37.0-47.0); HEMOGLOBIN 15.8 gm/dL (12.0-15.0); LYMPHOCYTES 8.3 % (24.0-44.0); MCH 31.5 pg (26.0-34.0); MCHC 33.6 g/dL (28.0-37.0); MCV 93.7 fL (80.0-100.0); MONOCYTES 3.1 % (1.0-8.0); PLATELET COUNT 256 thou/uL (150-400); POLYS 87.8 % (36.0-66.0); RBC 5.03 mil/uL (4.20-5.00); RDW 15.1 % (10.5-14.5); WBC 12.5 thou/uL (4.0-11.0)
[2020-02-12 21:07] LABS: URINE BILIRUBIN 1+ (Negative); URINE BLOOD NEGATIVE (Negative); URINE CLARITY CLEAR; URINE COLOR YELLOW; URINE GLUCOSE-RANDOM* 3+ (Negative); URINE KETONES 2+ (Negative); URINE LEUKOCYTES-REFLEX NEGATIVE (Negative); URINE NITRITE-REFLEX NEGATIVE (Negative); URINE PROTEIN (DIPSTICK) NEGATIVE (Negative); URINE UROBILINOGEN 0.2 E.U./dl (0.2-1.0)
[2020-02-12 21:09] LABS: CREATININE 1.4 mg/dL (0.6-1.0); POTASSIUM 4.1 mmol/L (3.5-5.1)
[2020-02-12 21:15] LABS: ALBUMIN 3.6 g/dL (3.4-5.0); DIRECT BILIRUBIN 0.1 mg/dL (<0.1-0.2); TOTAL BILIRUBIN 0.6 mg/dL (0.2-1.0); TOTAL PROTEIN 8.2 g/dL (6.4-8.2)
[2020-02-12] MEDS ORDERED: PROTONIX40 M2 PO (21:22)
[2020-02-12] MEDS ORDERED: REXULTI0.25 MG PO (21:23)
[2020-02-12] MEDS ORDERED: FLOMAX0.4 MG PO (21:23)
[2020-02-12] MEDS ORDERED: VITAMIN D2 PO (21:25)
[2020-02-12] MEDS ORDERED: AMLODIPINE PO (21:26)
[2020-02-12] MEDS ORDERED: ESCITALOPRAM PO (21:27)
[2020-02-12] MEDS ORDERED: FOLIC ACID PO (21:28)
[2020-02-12] MEDS ORDERED: HYDROCORT PO (21:29)
[2020-02-12] MEDS ORDERED: LEVO-T25 MCG PO (21:30)
[2020-02-12] MEDS ORDERED: METHOTREXATE 22.5 M1 PO (21:31)
[2020-02-12] MEDS ORDERED: [UNRECOGNIZED DRUG - MIXTURE] PO (21:33)
[2020-02-12] MEDS ORDERED: OXYCODONE PO (21:34)
[2020-02-12] MEDS ORDERED: MORPHINE PO (21:35)
[2020-02-12] MEDS ORDERED: ATIVAN0.5 M1 PO (21:36)
[2020-02-12] MEDS ORDERED: NOVOLOG100 UNIT/1 PO (21:38)
[2020-02-12] MEDS ORDERED: TRULICITY0.75 MG/0. SUBQ (21:40)
[2020-02-13] MEDS ORDERED: BENTYL 20 MG TA20 M1 PO (02:37)
[2020-02-13] MEDS ORDERED: ZOFRAN ODT4 MG PO (02:37)
[2020-02-13 02:58] VITALS: BP 167/76
--- NOTE | 2020-02-13 07:56 | EKG ---
[facility] [place] [address] ELECTROCARDIOGRAM REPORT Name: YONG LUO Room #: [facility]#: [id number] Admission: 02/12/20 Attend Phys: Discharge: 02/13/20 Date of : 53 Report #: [id number] THIS REPORT FOR: cc: Ric Garcia Theodore M. DO Lundgren, Craig H. 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
== END 2020-02-13 03:11 | disposition home or self-care (01) ==
LOC: ER 20:11
PROVIDERS: Emergency Medicine
DX: K52.9 Noninfective gastroenteritis and colitis, unspecified (principal); E87.2 Acidosis; R11.2 Nausea with vomiting, unspecified; R06.02 Shortness of breath; I10 Essential (primary) hypertension; E11.9 Type 2 diabetes mellitus without complications; E03.9 Hypothyroidism, unspecified; F31.9 Bipolar disorder, unspecified; M06.9 Rheumatoid arthritis, unspecified; F41.9 Anxiety disorder, unspecified; Z90.89 Acquired absence of other organs; Z98.890 Other specified postprocedural states; Z98.51 Tubal ligation status; Z86.14 Personal history of Methicillin resistant Staphylococcus aureus infection; Z79.4 Long term (current) use of insulin; Z79.899 Other long term (current) drug therapy; Z88.8 Allergy status to other drugs, medicaments and biological substances; Z88.6 Allergy status to analgesic agent

== ENCOUNTER 2020-07-30 18:38 | Inpatient (IN) | payer OTHER ==
[~2020-07-30] VITALS: Ht 160 cm; Wt 104.3 kg
[~2020-07-30 18:38] MED LIST changes: +AMLODIPINE PO; +ATIVAN0.5 M1 PO; +BENTYL 20 MG TA20 M1 PO; +ESCITALOPRAM PO; +FOLIC ACID PO; +HYDROCORT PO; +LEVO-T25 MCG PO; +MORPHINE PO; +NOVOLOG100 UNIT/1 PO; +OXYCODONE PO; +PROTONIX40 M2 PO; +REXULTI0.25 MG PO; +TRULICITY0.75 MG/0. SUBQ; +VITAMIN D2 PO; +[UNRECOGNIZED DRUG - MIXTURE] PO
[2020-07-30 18:39] VITALS: BP 119/71
[2020-07-30 19:12] LABS: ABSOLUTE NEUTROPHILS 5.3 thou/uL (1.4-8.2); BASOPHILS 0.7 % (0.0-2.0); EOSINOPHILS 0.4 % (0.0-3.0); HEMATOCRIT 44.9 % (37.0-47.0); HEMOGLOBIN 14.5 gm/dL (12.0-15.0); LYMPHOCYTES 28.2 % (24.0-44.0); MCH 31.2 pg (26.0-34.0); MCHC 32.2 g/dL (28.0-37.0); MCV 96.9 fL (80.0-100.0); MONOCYTES 7.5 % (1.0-8.0); PLATELET COUNT 250 thou/uL (150-400); POLYS 63.2 % (36.0-66.0); RBC 4.64 mil/uL (4.20-5.00); RDW 16.9 % (10.5-14.5); WBC 8.3 thou/uL (4.0-11.0)
[2020-07-30 19:20] LABS: BE(vivo) -1.6 mmol/L (-2 to +3); HCO3 25.3 mmol/L (22.0-26.0); PCO2 51.1 mmHg (35.0-45.0); pH 7.312 (7.360-7.450); sO2 85.5 % (92.0-98.0)
[2020-07-30 19:21] LABS: PO2 54.9 mmHg (80.0-100.0)
[2020-07-30 20:08] LABS: URINE BLOOD NEGATIVE (Negative); URINE CLARITY CLEAR; URINE COLOR YELLOW; URINE GLUCOSE-RANDOM* NEGATIVE (Negative); URINE KETONES NEGATIVE (Negative); URINE LEUKOCYTES-REFLEX NEGATIVE (Negative); URINE NITRITE-REFLEX NEGATIVE (Negative); URINE PROTEIN (DIPSTICK) NEGATIVE (Negative); URINE SPECIFIC GRAVITY >= 1.030 (1.005-1.035)
[2020-07-30 20:23] LABS: ALBUMIN 3.5 g/dL (3.4-5.0); CALCIUM 9.2 mg/dL (8.5-10.1); CREATININE 2.2 mg/dL (0.6-1.0); POTASSIUM 4.4 mmol/L (3.5-5.1); TOTAL BILIRUBIN 0.2 mg/dL (0.2-1.0); TOTAL PROTEIN 7.7 g/dL (6.4-8.2)
[2020-07-30 20:39] LABS: ICTOTEST (BILI CONFIRMATORY) Negative (Negative); URINE BILIRUBIN NEGATIVE (Negative)
[2020-07-30 21:16] VITALS: BP 161/84
[2020-07-30 21:22] VITALS: BP 161/84
[2020-07-30 22:01] VITALS: BP 143/80
[2020-07-30] MEDS ORDERED: LEVEMIR FL100 UNIT/2 SUBQ (23:26)
--- NOTE | 2020-07-30 23:29 | NUR ---
ADMIT FROM HOME. PRESENTED TO ED WITH LOW 02 SAT FEELING TIRED WEAK ACHES ALL OVER. PT STATED SHE WAS TOLD SHE HAD PNEUMONIA BUT SHE STATED SHE DID NOT FEEL SOA. PT ON 2L NC. LUNGS DIMINSHED. RR WNL. PT REPORTING HEADACHE AND WANTING HOME PAIN MEDS REORDERED FOR RELIEF. PT CONSENTED TO SECOND COVID TEST. WILL BE SENT. IV ANTIBIOTICS RUNNING. PT TALKED WIHT HER FAMILY ON THE PHONE. PT PROVIDED SNACK TRAY PER HER REQUEST. PT VERBALIZED UNDERSTANDING TO ASK FOR ASSISTANCE WITH AMBULATION RELATED TO IV TUBING AND OXYGEN.
[2020-07-31 04:23] VITALS: BP 143/72
--- NOTE | 2020-07-31 04:28 | NUR ---
BOTH PCR COVIDS NEGATIVE, PT , PROVIDER AND DERMATOPATHOLOGIST NOTIFIED.
[2020-07-31 06:04] LABS: HEMOGLOBIN 13.5 gm/dL (12.0-15.0); MCH 30.2 pg (26.0-34.0); MCHC 31.3 g/dL (28.0-37.0); MCV 96.7 fL (80.0-100.0); RBC 4.45 mil/uL (4.20-5.00); RDW 16.6 % (10.5-14.5); WBC 5.5 thou/uL (4.0-11.0)
[2020-07-31 06:13] LABS: CALCIUM 8.8 mg/dL (8.5-10.1); CREATININE 1.9 mg/dL (0.6-1.0); POTASSIUM 5.3 mmol/L (3.5-5.1)
--- NOTE | 2020-07-31 07:09 | EKG ---
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 : 1955 Requested By: Aristeo Jaime Order Number: [id number] MD: Andrew Cancino Measurements Intervals [place] Rate: 88 P: 64 [place]: 147 QRS: 49 QRSD: 95 T: 53 QT: 379 QTc: 459 Interpretive Statements Sinus rhythm Borderline T wave abnormalities Baseline wander in lead(s) II,III,aVF Compared to ECG 02/12/2020 20:32:04 T-wave abnormality now present ST (T wave) deviation no longer present Electronically Signed On 07-31-2020 7:08:51 SHRIMP PEELING MACHINE TENDER by Andrew Cancino [email or web address] <ELECTRONICALLY SIGNED> By: Andrew Cancino MD, FACC 07/31/20 0708 24 24 Andrew Cancino MD, [facility] /EPI
[2020-07-31 07:39] VITALS: BP 118/84
[2020-07-31 10:47] VITALS: BP 146/77
--- NOTE | 2020-07-31 10:52 | NUR ---
INITIAL ASSESSMENT: Received consult for discharge planning. SW reviewed chart and spoke with nursing and attending physician. Pt was admitted from home due to pneumonia/acute respiratory failure. Pt placed in Enhanced Isolation to r/o COVID. Pt's test is negative. Pt is on IV abx and IV steroids. Pt currently on 2L of O2. Pt with hx of COPD/CHF. SW spoke with pt via phone. Introduced role of SW. Pt is alert/orientated x 4. Pt reports she lives in an apt at [facility]. Pt's son is her paid caregiver through her [place]. Pt has used [facility] in the past for home health. Pt has been to [address] [place] [address] for post-acute care. Pt's PCP is Dr. Hammad Garcia. Pt states her goal is to return home. Pt was not on O2 prior to admission. PT/OT ordered to evaluate pt for discharge needs. SW is following to assist as needed with discharge planning.
--- NOTE | 2020-07-31 18:06 | NUR ---
A/O X 4 - neuro status unchanged. Exhibits increased O2 needs with activity - exercise oximetry done - PULM consulted for further eval. COVID isolation protocol dc'd; max'd on prn pain meds for pain management. VSS. encouraged to work with PT and OT.
[2020-07-31 18:08] VITALS: BP 149/83
[2020-07-31 19:45] VITALS: BP 146/82
[2020-08-01 03:45] VITALS: BP 137/79; BP 37/79
--- NOTE | 2020-08-01 04:09 | NUR ---
Pt. requested pain med at HS for headache and back pain with some relief. She slept fair during the night. O2 at 2L/NC and reported being short of breath with exertion/activities. Up independently to commode with steady gait. Afebrile and off isolation. Making progress towards care plan goals.
[2020-08-01 07:38] VITALS: BP 146/80
--- NOTE | 2020-08-01 12:43 | NUR ---
WOOD reviewed chart and spoke with nursing and attending physician. Pt is progressing towards goals for discharge home. Pt is on 2L of O2. Pt is on IV abx and IV steroids. Discharge home is anticipated for tomorrow. Rest/exercise oximetry to be completed tomorrow prior to discharge to determine if pt needs home O2. WOOD spoke with pt via phone to discuss discharge plan. SW discussed possible need for home O2. Pt verbalized understanding. Options provided. No preference voiced. Pt denies needing home health services. Pt states she will have transportation home. WOOD faxed referral to [facility] for possible home O2. Notified liaison, who will deliver portable O2 tank today for pt to take home when discharged, if needed. Rest/exercise oximetry results and script for O2 will need to be faxed to [facility]. Contact info for [facility], will need to be placed in pt's discharge summary. WOOD is following to assist as needed with discharge planning. [facility] EMERGENCY DEPARTMENT--
[2020-08-01 16:04] VITALS: BP 138/74
[2020-08-01 19:12] VITALS: BP 132/65
--- NOTE | 2020-08-02 01:51 | NUR ---
PT RESTING IN BED WATCHING TV. PT REQUESTED HS SNACK AND PROVIDED. PT REPORTS POSSIBLE DC IN AM. O2 PER NC. LUNGS WITH WHEEZE. PT REMAINS INDEP TO BSC.
[2020-08-02 03:27] VITALS: BP 122/73
[2020-08-02 06:41] LABS: HEMATOCRIT 36.4 % (37.0-47.0); MCH 30.2 pg (26.0-34.0); MCHC 31.5 g/dL (28.0-37.0); RBC 3.79 mil/uL (4.20-5.00); RDW 16.3 % (10.5-14.5); WBC 12.8 thou/uL (4.0-11.0)
[2020-08-02 06:46] LABS: HEMOGLOBIN 11.5 gm/dL (12.0-15.0)
[2020-08-02 06:49] LABS: CALCIUM 7.6 mg/dL (8.5-10.1); MAGNESIUM 2.3 mg/dL (1.8-2.4); POTASSIUM 4.1 mmol/L (3.5-5.1)
[2020-08-02 07:30] VITALS: BP 129/74
[2020-08-02 15:27] VITALS: BP 145/72
--- NOTE | 2020-08-02 19:00 | NUR ---
SHE HAS HAD ONE EPISODE OF DIARRHEA. STATES DIARRHEAL STOOLS HAVE SUBSIDED. DOES NOT SEEM TO BE IN PAIN. PLEASANT WITH CARE. MAY POSSIBLY DC TOMORROW.
[2020-08-02 20:05] VITALS: BP 157/83
--- NOTE | 2020-08-02 23:38 | NUR ---
PT RESTING IN BED WATCHING TV. INDEPENDENT TO BSC. NO LONGER ON OXYGEN. PT STATED SHE HAS NOT HAD ANY DIARRHEA THIS EVENING. PT VERBALIZED BEING VERY HUNGRY AND PROVIDED HS SNACK.
--- NOTE | 2020-08-03 00:45 | NUR ---
PT REPORTED AZITHROMYCIN BURNING IV SITE, CHANGED TO DIFFERENT SITE AND RATE DECREASED AND PT STILL REPORTED BURNING. PT REQUESTED IV MED AND IVF BE STOPPED AND LAC IV BE REMOVED SO DONE. LH IV INTACT. WILL REAPPROACH PT IN A FEW HOURS TO APPROACH SUBJECT OF CONTINUING OTHER IV ANTIBIOTIC.
[2020-08-03 05:27] VITALS: BP 142/74
[2020-08-03 08:06] VITALS: BP 125/75
[2020-08-03 15:11] VITALS: BP 125/75
== END 2020-08-03 15:55 | disposition home or self-care (01) | DRG 682 ==
LOC: ER 18:38 → EROBS 21:14 → 3W 21:14
PROVIDERS: Nurse Practitioner Family; Physician Assistant; ADMIT Internal Medicine; ATTEND Internal Medicine
DX: N17.9 Acute kidney failure, unspecified (principal); J12.9 Viral pneumonia, unspecified; J96.01 Acute respiratory failure with hypoxia; A08.4 Viral intestinal infection, unspecified; F32.9 Major depressive disorder, single episode, unspecified; F41.9 Anxiety disorder, unspecified; I10 Essential (primary) hypertension; E11.9 Type 2 diabetes mellitus without complications; E03.9 Hypothyroidism, unspecified; K21.9 Gastro-esophageal reflux disease without esophagitis; G89.29 Other chronic pain; M06.9 Rheumatoid arthritis, unspecified; Z20.822 Contact with and (suspected) exposure to COVID-19; Z79.4 Long term (current) use of insulin; Z79.899 Other long term (current) drug therapy; Z88.8 Allergy status to other drugs, medicaments and biological substances
CPT/HCPCS: 10879

== ENCOUNTER → 2020-08-20 | Outpatient (CLI) | payer OTHER ==
[~2020-08-20] MED LIST changes: +LEVEMIR FL100 UNIT/2 SUBQ
== END ==
LOC: RAD 08:20
PROVIDERS: ATTEND Pediatrics
DX: R06.02 Shortness of breath (principal)

== ENCOUNTER 2020-11-19 20:37 | Inpatient (IN) | payer OTHER ==
[~2020-11-19] VITALS: Ht 160 cm; Wt 109.3 kg
--- NOTE | ~2020-11-19 | EMS ---
[facility] [address] [place] [address] EMS Patient Care Report Name: YONG LUO Room #: REG LAURA Rajput#: [id number] Admission: 11/19/20 Attend Phys: Discharge: Date of : 53 Report #: [id number] THIS REPORT FOR: //name// Report Transmitted: 11/19/2020 20:54 EMS Care Summary [place], [place]/[facility] Incident [id number] @ 11/19/2020 19:[address] Patient YONG LUO Female, 65 Years 1955 Patient Address [id number] [place] [address] Patient History Hypertension (HTN),Hyperlipidemia,Type 2 Diabetes, Patient Allergies Aspirin,Metformin, Patient Medications Other, Chief Complaint Headache, nausea and dizziness Disposition Transported No Lights/[place] Dispatch Reason Sick Person Transported To [facility] Narrative Called for a sick. Upon arrival, pt was walking out the door where she sat down on our cot w/o incident. Pt c/o feeling weak, dizzy w/headache and nausea all starting approx 4 hours ago. She denies any type of CP or SOB. She [facility] [address] [place] [address] EMS Patient Care Report Name: YONG LUO Room #: [facility] Aminata.#: [id number] Admission: 11/19/20 Attend Phys: Discharge: Date of : 53 Report #: [id number] requested transport to [facility] ER for further eval & tx. Pt was moved to the ambulance and loaded w/o incident. Vitals obtained. Attempt IV x 2, d-stick. Vitals repeated. 4 Lead. En route: no changes. RR to ER. Arrived: pt taken to ER # and moved to their bed w/o incident. Pt care & report to ER staff. Initial Vitals @20:06P: 93,R: 16,BP: 158/87,Pain: 0/10,GCS: 15,SpO2: 92,Revised Trauma: 12,CT Suspected: false @20:15P: 96,R: 16,BP: 156/90,Pain: 0/10,GCS: 15,Glucose: 183,CO: 1,SpO2: 91,Revised Trauma: 12,CT Suspected: false Assessments @20:01MENTAL:Person Oriented,Time Oriented,Place Oriented,Event Oriented,SKIN:HEENT:LUNG SOUNDS:General: Nausea,ABDOMEN:General: Nausea,PELVIS//GI:EXTREMITIES:Left Arm: No Abnormalities,Right Arm: No Abnormalities,Left Leg: No Abnormalities,Right Leg: No Abnormalities,PULSE:Radial: 2+ Normal,NEURO:No Abnormalities, Impression Headache Procedures @20:01ALS AssessmentResponse: UnchangedSucceeded@20:13Saline Lock cc (18 ga) Site: Antecubital-LeftResponse: UnchangedFailed@20:12Saline Lock cc (18 ga) Site: Antecubital-RightResponse: UnchangedFailed@20:04StretcherResponse: Unchanged@20:113-Lead ECGResponse: UnchangedSucceeded Timeline 19:44,Call Received 19:44,Dispatch Notified 19:46,Dispatched 19:47,En Route 19:59,On Scene 20:01,At Patient 20:01,ALS Assessment,Response: UnchangedSucceeded, 20:04,Stretcher,Response: Unchanged 20:06,BP: 158/87 M,PULSE: 93,RR: 16 R,SPO2: 92 Ox,ETCO2: ,BG: ,PAIN: 0,GCS: 15, 20:11,3-Lead ECG,Response: UnchangedSucceeded, 20:12,Saline Lock cc 18 ga Site: Antecubital-Right,Response: UnchangedFailed, 20:13,Saline Lock cc 18 ga Site: Antecubital-Left,Response: UnchangedFailed, 20:15,BP: 156/90 M,PULSE: 96,RR: 16 R,SPO2: 91 Ox,ETCO2: ,B,PAIN: 0,GCS: 15, 20:15,Depart Scene 20:31,At Destination 20:46,Call Closed [facility] [address] [place] [address] EMS Patient Care Report Name: YONG LUO Room #: REG LAURA Rajput#: [id number] Admission: 11/19/20 Attend Phys: Discharge: Date of : 53 Report #: [id number] Disclaimer v1.1 Copyright 2020 [employer] This EMS Care Summary contains data elements from the applicable legal record (which may be displayed differently). It is designed to provide pertinent information for the following purposes: continuity of care, clinical quality, and state data reporting. The complete legal record is available to ED staff and administrators of the receiving hospital in [employer]'s Patient Tracker. All data is provided "as is."
[2020-11-19 20:37] VITALS: BP 158/83
[~2020-11-19 20:37] MED LIST changes: +CALCIUM + D3 E1 EACH PO; -ESCITALOPRAM PO; -FOLIC ACID PO; -MORPHINE PO; +MS CONTIN60 MG PO; -OXYCODONE PO; +ROXICODONE5 M2 PO; -[UNRECOGNIZED DRUG - MIXTURE] PO
[2020-11-19 21:51] LABS: ANION GAP 6 mmol/L (7-16); BUN 11 mg/dL (7-18); CALCIUM 8.7 mg/dL (8.5-10.1); CHLORIDE 103 mmol/L (98-107); CO2 30 mmol/L (21-32); CREATININE 1.2 mg/dL (0.6-1.0); GLUCOSE 218 mg/dL (74-106); POTASSIUM 4.4 mmol/L (3.5-5.1); SODIUM 139 mmol/L (136-145)
[2020-11-19 21:52] LABS: HEMATOCRIT 42.4 % (37.0-47.0); MCH 30.9 pg (26.0-34.0); MCV 93.6 fL (80.0-100.0); RBC 4.53 mil/uL (4.20-5.00); RDW 15.3 % (10.5-14.5); WBC 17.9 thou/uL (4.0-11.0)
[2020-11-19 22:01] LABS: ALBUMIN 3.1 g/dL (3.4-5.0); SGOT 26 U/L (15-37); SGPT 41 U/L (14-59); TOTAL BILIRUBIN 0.8 mg/dL (0.2-1.0); TOTAL PROTEIN 7.2 g/dL (6.4-8.2); TROPONIN-I <0.06 ng/mL (<0.06)
[2020-11-19 22:26] LABS: URINE BILIRUBIN NEGATIVE (Negative); URINE BLOOD NEGATIVE (Negative); URINE CLARITY CLEAR; URINE COLOR YELLOW; URINE GLUCOSE-RANDOM* NEGATIVE (Negative); URINE KETONES NEGATIVE (Negative); URINE NITRITE-REFLEX NEGATIVE (Negative); URINE PROTEIN (DIPSTICK) NEGATIVE (Negative); URINE UROBILINOGEN 0.2 E.U./dl (0.2-1.0)
[2020-11-19 22:39] LABS: URINE LEUKOCYTES-REFLEX 1+ (Negative)
[2020-11-19 22:45] LABS: CASTS None Seen /LPF (None Seen); CRYSTALS None Seen /LPF (None Seen); MUCUS 0-3 Light strn/LPF (None Seen); SQUAMOUS 4-10 Moderate /LPF (0-3); URINE RBC 3-10 Few /HPF (NONE SEEN); URINE WBC-REFLEX 6-15 Few /HPF (0-5)
[2020-11-20] MEDS ORDERED: NORVASC5 MG PO (02:28)
[2020-11-20] MEDS ORDERED: PRINIVIL20 MG PO (02:28)
[2020-11-20] MEDS ORDERED: CORTEF10 MG PO ×2 (02:29→02:30)
[2020-11-20 06:28] VITALS: BP 148/71
--- NOTE | 2020-11-20 07:15 | EKG ---
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 : 1955 Requested By: Sandeep Lopez Order Number: [id number] MD: Andrew Cancino Measurements Intervals [place] Rate: 80 P: 56 AK: 140 QRS: 50 QRSD: 87 T: -57 QT: 411 QTc: 475 Interpretive Statements Sinus rhythm Nonspecific T abnormalities, inferior leads Baseline wander in lead(s) III Compared to ECG 07/30/2020 19:25:07 No significant changes Electronically Signed On 11-20-2020 7:15:42 CDT by Andrew Cancino [email or web address] <ELECTRONICALLY SIGNED> By: Andrew Cancino MD, [facility] 06/04/02 715 17 17 Andrew Cancino MD, [facility] /EPI
--- NOTE | 2020-11-20 07:21 | NUR ---
ATTEMPTING TO GIVE REPORT, NURSE NOT AVAILABLE
--- NOTE | 2020-11-20 07:49 | NUR ---
ATTEMPTED 2ND CALL FOR REPORT , NURSE WAS IN PT ROOM
[2020-11-20 07:56] VITALS: BP 133/65
[2020-11-20 08:29] VITALS: BP 131/71
--- NOTE | 2020-11-20 10:43 | NUR ---
PT ARRIVED AT 0810 VIA CART FROM ER. PT STATES ABD PAIN AND
--- NOTE | 2020-11-20 10:47 | NUR ---
PT ARRIVED FROM ER AT 0810. PT MS, FALL PRECAUTIONS PUT IN PLACE. BED ALARM ON. PT A&OX4 AT THIS TIME. IV FLUIDS STARTED AND IN ANTIBIOTIC STARTED AFTER ARRIVAL TO ROOM. SCHEDULED PO MEDS GIVEN AND PRN PO PAIN MED GIVEN FOR ABD PAIN AND CHRONIC BACK PAIN. CONSENTS SIGNED AND ON CHART. CALL LIGHT WITHIN REACH BED IN LOW LOCKED POSITION, PT ABLE TO USE CALL LIGHT AND EXPRESS NEEDS.
[2020-11-20 15:44] VITALS: BP 137/78
[2020-11-20 19:12] VITALS: BP 126/66
--- NOTE | 2020-11-21 05:09 | NUR ---
Pt. rested quietly at intervals during the night when checked on during frequent rounds. She c/o abdominal pain and scheduled Pain med given (see emar) with some relief noted. Pt. c/o nausea and anti-nausea med given with some relief (see emar). Ambulated to the bathroom with standby assist. Bed alarm is on.
[2020-11-21 07:25] VITALS: BP 122/71
[2020-11-21 07:46] VITALS: BP 130/71
--- NOTE | 2020-11-21 11:53 | NUR ---
ENTERED ROOM AT 1100, PT. DECLINES FURTHER OT SERVICES AT THIS TIME. STATES SHE IS AT BASELINE FOR ADLS AND FUNCTIONAL MOBILITY. OT PROVIDES PT. WITH EC/WS HANDOUT P.T. HAD STATED PT. WAS SOA WITH LONG DISTANCE AMBULATION. PT. GRATEFUL FOR EDUCATION. OT WILL D/C PT. FROM OT SERVICES.
--- NOTE | 2020-11-21 11:58 | NUR ---
PT ADMITTED REALTED TO ABD PAIN, WEAKNESS, NAUSEA, UTI, AND DUODENTITIS. CM REVIEWED CHART AND SPOKE WITH CARE TEAM. CM MET WITH PT AT BEDSIDE THIS DAY. PT APPEARS TO BE A&O X4. CM ROLE INTRODUCED. PT INDICATED THAT SHE RESIDES IN AN APARTMENT AT [facility] WITH ELEVATOR ACCESS. PT INDICATED THAT SHE HAS A FWW AND A CANE TO ASSIST WITH MOBILITY COLLECTION SYSTEMS ADMINISTRATOR. PT STATED THAT SHE HAD BEEN INDEPEDNENT WITH ADLS COLLECTION SYSTEMS ADMINISTRATOR. PT INDICATED THAT HER STEP DTR IS HER PAID CAREGIVER THROUGH [facility] 4X'S A WEEK 3-4 HRS PER DAY. PT HAD [facility] HH IN THE PAST. NO HOME O2 COLLECTION SYSTEMS ADMINISTRATOR. PT INDICATED SHE PLANS TO RETURN TO HER APARTMENT ONCE MEDICALLY STABLE. PT SAW PT AND INDICATED SHE WOULD BE SAFE TO DC WITH NO HH SERVICES. ANTICIPATED DC HOME TOMORROW Tuesday11/22/20 HOME TO SELF CARE.
[2020-11-21 15:17] VITALS: BP 137/81
--- NOTE | 2020-11-21 19:53 | NUR ---
ASSUMED PT CARE AROUND 0700. PT ALERT X ORIENTED X 4. ON ROOM AIR. IV LEFT UA WITH NS/75MLS/HR. FALL PRECAUTION IN PLACE. CALL LIGHT IN REACH. WILL CALL APPROPRIATELY. NAUSEA AND PAIN CONTROLLED BY NAUSEA AND PAIN MEDS. HOURLY ROUNDING DONE.SHIFT REPORT GIVEN TO GAS MAKER HELPER.
[2020-11-21 20:08] VITALS: BP 130/71
--- NOTE | 2020-11-22 04:17 | NUR ---
Pt. rested quietly during the night when checked on during frequent rounds. She had her scheduled MS contin for abdominal pain (see emar) with some relief noted. Assisted to the bathroom with standby assistance.
[2020-11-22 07:40] VITALS: BP 150/86
--- NOTE | 2020-11-22 11:10 | NUR ---
Received awake on bed. Due medications given as prescribed, able to swallow meds w/o difficulty. On room air. Vital signs stable. On MS, not on telemetry; no complains and signs of chest pain, crushing sensation and heaviness. Assisted in ADLs. Tolerating diet well; no nausea, no vomiting noted. With NS at 70cc/hr, infusing well at L upper arm; on IV antibiotics. Falls bundle in place. Continent of bowel and bladder. Falls bunlde in place. Complained of pain, due PRN pain meds given as prescribed. Pt seen and examined by Dr Mcnair this AM, for possible discharge today- a/w further orders- pt updated. To continue monitoring patient.
[2020-11-22] MEDS ORDERED: AUGMENTIN 875-1 EACH PO (11:13)
[2020-11-22 12:49] VITALS: BP 150/86
== END 2020-11-22 14:35 | disposition home or self-care (01) | DRG 690 ==
LOC: ER 20:37 → EROBS 11-20 01:09 → 4W 11-20 01:09
PROVIDERS: Emergency Medicine; ADMIT Hospitalist; ATTEND Hospitalist
DX: N39.0 Urinary tract infection, site not specified (principal); R65.10 Systemic inflammatory response syndrome (SIRS) of non-infectious origin without acute organ dysfunction; K29.80 Duodenitis without bleeding; E11.9 Type 2 diabetes mellitus without complications; I10 Essential (primary) hypertension; E03.9 Hypothyroidism, unspecified; R31.9 Hematuria, unspecified; F41.9 Anxiety disorder, unspecified; F31.9 Bipolar disorder, unspecified; G89.29 Other chronic pain; M06.9 Rheumatoid arthritis, unspecified; K21.9 Gastro-esophageal reflux disease without esophagitis; B96.20 Unspecified Escherichia coli [E. coli] as the cause of diseases classified elsewhere; Z79.4 Long term (current) use of insulin; Z79.899 Other long term (current) drug therapy; Z79.82 Long term (current) use of aspirin; Z88.8 Allergy status to other drugs, medicaments and biological substances
CPT/HCPCS: 10040

== ENCOUNTER 2021-01-04 00:58 | Inpatient (IN) | payer OTHER ==
[2021-01-04] VITALS (14 sets, daily range): BP systolic 84–160; BP diastolic 54–66
[~2021-01-04] VITALS: Ht 152.4 cm; Wt 107.5 kg
[~2021-01-04 00:58] MED LIST changes: +AUGMENTIN 875-1 EACH PO; +PRINIVIL20 MG PO
[2021-01-04 01:28] LABS: ABSOLUTE NEUTROPHILS 7.8 thou/uL (1.4-8.2); EOSINOPHILS 0.8 % (0.0-3.0); HEMATOCRIT 40.9 % (37.0-47.0); HEMOGLOBIN 13.1 gm/dL (12.0-15.0); LYMPHOCYTES 19.4 % (24.0-44.0); MCH 30.9 pg (26.0-34.0); MCHC 32.1 g/dL (28.0-37.0); MCV 96.2 fL (80.0-100.0); MONOCYTES 9.3 % (1.0-8.0); PLATELET COUNT 222 thou/uL (150-400); POLYS 69.5 % (36.0-66.0); RBC 4.25 mil/uL (4.20-5.00); RDW 15.5 % (10.5-14.5); WBC 11.2 thou/uL (4.0-11.0)
[2021-01-04 01:36] LABS: ANION GAP 10 mmol/L (7-16); BUN 50 mg/dL (7-18); CALCIUM 8.7 mg/dL (8.5-10.1); CHLORIDE 104 mmol/L (98-107); CO2 27 mmol/L (21-32); CREATININE 4.2 mg/dL (0.6-1.0); GLUCOSE 189 mg/dL (74-106); POTASSIUM 4.8 mmol/L (3.5-5.1); SODIUM 141 mmol/L (136-145)
[2021-01-04 01:44] LABS: ALBUMIN 3.2 g/dL (3.4-5.0); SGPT 36 U/L (14-59); TOTAL BILIRUBIN 0.5 mg/dL (0.2-1.0); TOTAL PROTEIN 7.6 g/dL (6.4-8.2); TROPONIN-I <0.06 ng/mL (<0.06)
[2021-01-04 02:12] LABS: SGOT 135 U/L (15-37)
[2021-01-04 02:42] LABS: URINE BILIRUBIN 1+ (Negative); URINE BLOOD 3+ (Negative); URINE CLARITY CLEAR; URINE COLOR YELLOW; URINE GLUCOSE-RANDOM* NEGATIVE (Negative); URINE KETONES NEGATIVE (Negative); URINE LEUKOCYTES-REFLEX NEGATIVE (Negative); URINE NITRITE-REFLEX NEGATIVE (Negative); URINE PROTEIN (DIPSTICK) TRACE (Negative); URINE SPECIFIC GRAVITY >= 1.030 (1.005-1.035); URINE UROBILINOGEN 0.2 E.U./dl (0.2-1.0)
[2021-01-04 02:44] LABS: ICTOTEST (BILI CONFIRMATORY) Positive (Negative)
[2021-01-04 02:54] LABS: BACTERIA-REFLEX None Seen /HPF (None Seen); HYALINE CASTS 0-3 Few /LPF (None Seen); MUCUS 0-3 Light strn/LPF (None Seen); SQUAMOUS None Seen /LPF (0-3); URINE WBC-REFLEX None Seen /HPF (0-5)
[2021-01-04 02:56] LABS: URIC ACID CRYSTALS 0-3 Few /LPF (None Seen); URINE RBC 1-2 Rare /HPF (NONE SEEN)
[2021-01-04 05:18] LABS: AMP/METHAMP Negative (Negative); BARBITURATES Negative (Negative); BENZODIAZEPINES Negative (Negative); COCAINE Negative (Negative); METHADONE Negative (Negative); OPIATES POSITIVE (Negative); PCP Negative (Negative)
[2021-01-04] MEDS ORDERED: PROAIR HFA8.5 GM INH (07:16)
[2021-01-04] MEDS ORDERED: BREZTRI AEROS10.7 GM INH (07:16)
--- NOTE | 2021-01-04 07:40 | NUR ---
SON PHONED AND STATES THAT THEY DID NOT SPEAK TO PT YESTERDAY THAT THEY SPOKE TO HER ON TUESDAY AND SHE WAS "NORMAL" THEN REPORTED INCREASE IN BACK PAIN AND CONCERN THAT SHE MAY HAVE TAKEN "TO MUCH PAIN MEDICINE". PER SON LISET SAMS.
--- NOTE | 2021-01-04 08:53 | NUR ---
PER DR ARIAS @ BEDSIDE GIVE NALOXONE X1 AT THIS TIME. GIVEN
--- NOTE | 2021-01-04 10:37 | EKG ---
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
[2021-01-04 11:10] LABS: FOLIC ACID 26.6 ng/mL (8.6-58.9)
--- NOTE | 2021-01-04 14:34 | NUR ---
LISET PHONED AGAIN AND CONCERNED THAT MOTHER WILL NOT HAVE PSYCH MEDICATIONS WANTING NURSE TO CHECK PT WALLET FOR LIST NO LIST IN [place]. DID TELL HIM WE HAVE LIST FROM PROVIDER VISIT ON 12/25/20 BUT NO MEDS LISTED FOR PSYCH. HE IS TO BRING UPDATE.
[2021-01-04 14:40] LABS: BE(vivo) -4.4 mmol/L (-2 to +3); HCO3 24.8 mmol/L (22.0-26.0); PO2 112.8 mmHg (80.0-100.0)
[2021-01-04 14:41] LABS: PCO2 65.1 mmHg (35.0-45.0); pH 7.198 (7.360-7.450)
--- NOTE | 2021-01-04 15:05 | NUR ---
DR BEAULIEU PAGED AGAIN
[2021-01-04] MEDS ORDERED: REXULTI2 MG PO (15:12)
[2021-01-04] MEDS ORDERED: REMERON30 MG PO (15:13)
[2021-01-04 16:48] LABS: BE(vivo) -5.5 mmol/L (-2 to +3); HCO3 23.2 mmol/L (22.0-26.0); PCO2 60.2 mmHg (35.0-45.0); PO2 108.5 mmHg (80.0-100.0); sO2 96.8 % (92.0-98.0)
[2021-01-04 16:49] LABS: pH 7.204 (7.360-7.450)
[2021-01-05] VITALS (21 sets, daily range): BP systolic 119–156; BP diastolic 55–95
[2021-01-05 04:33] LABS: BE(vivo) -4.6 mmol/L (-2 to +3); HCO3 22.5 mmol/L (22.0-26.0); PCO2 50.1 mmHg (35.0-45.0); sO2 96.6 % (92.0-98.0)
[2021-01-05 04:34] LABS: pH 7.271 (7.360-7.450)
[2021-01-05 05:41] LABS: ABSOLUTE NEUTROPHILS 6.7 thou/uL (1.4-8.2); BASOPHILS 0.4 % (0.0-2.0); HEMOGLOBIN 11.7 gm/dL (12.0-15.0); LYMPHOCYTES 13.5 % (24.0-44.0); MCH 31.3 pg (26.0-34.0); MCHC 32.4 g/dL (28.0-37.0); MCV 96.5 fL (80.0-100.0); MONOCYTES 3.3 % (1.0-8.0); PLATELET COUNT 185 thou/uL (150-400); POLYS 82.8 % (36.0-66.0); RBC 3.73 mil/uL (4.20-5.00); RDW 15.6 % (10.5-14.5)
[2021-01-05 06:02] LABS: CALCIUM 7.8 mg/dL (8.5-10.1); CREATININE 1.4 mg/dL (0.6-1.0); MAGNESIUM 2.6 mg/dL (1.8-2.4); POTASSIUM 4.9 mmol/L (3.5-5.1)
--- NOTE | 2021-01-05 10:11 | NUR ---
PT AWAKENED, HAD VERY LARGE BM, INCONTINENT IN BED, PT BEGAN PULLING AT EVERYTHING ATTACHED TO HER. PT PULLED OUT PERIPHERAL IV, TOOK GOWN OFF, REMOVED PULSE OX MONITOR AND REMOVED BLOOD PRESSURE CUFF AND ATTEMPTED TO PULL OFF BIPAP. RN ABLE TO CLEAN PATIENT AND GIVE FULL LINEN CHANGE AND GOWN CHANGE AND REPLACE PULSE OX MONITOR AND B/P MONITOR.
--- NOTE | 2021-01-05 10:58 | NUR ---
PT'S SON LISET SAMS CALLED, NEXT OF KIN AND AUTHORIZED CONTACT. LISET STATED IT IS OKAY TO GIVE HIS BROTHER LEONIE LUO - [phone] INFORMATION IF HE CALLS BUT THAT THEY ARE THEY ONLY TWO TO GIVE INFORMATION ABOUT YONG OVER THE PHONE. LISET STATES THEY WILL UPDATE THE EXTENDED FAMILY.
--- NOTE | 2021-01-05 15:58 | NUR ---
1540-REPORT CALLED TO [facility]. PT BELONGINGS SENT WITH PT. ONCE PT REACHED 4W, THE FIELD ENUMERATOR CALLED AND STATED THE ROOM WAS NOT CLEANED YET AND THE PT WOULD NEED TO COME BACK DOWN TO ICU UNTIL THE ROOM WAS READY. [facility] GOLD ATTENDANT NOTIFED AND HOUSE SUP NOTIFED.
--- NOTE | 2021-01-05 19:18 | NUR ---
RN CALLED PT'S SON LISET AND LET HIM KNOW PT WAS TRANSFERRED TO [facility] AND HE WAS GIVEN 4W'S PHONE NUMBER.
--- NOTE | 2021-01-05 19:36 | NUR ---
Received pt from ICU, VS stable. 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 POC foillowed, report given to the night nurse.
[2021-01-06 03:18] LABS: ALBUMIN 2.6 g/dL (3.4-5.0); PHOSPHORUS 0.8 mg/dL (2.5-4.9)
[2021-01-06 03:20] LABS: POTASSIUM 3.8 mmol/L (3.5-5.1)
--- NOTE | 2021-01-06 06:39 | NUR ---
ASSUEMD CARE OF PT AT SHIFT CHANGE. PT AOX2 AND LETS NEEDS BE KNOWN AT TIMES. FALL PRECAUTION IN PLACE. PT DENIED PAIN, NAUSEA OR SOA. PT PULLED OUT CENTRAL LINE AND WILKS THIS SHIFT. SOME BLEEDING NOTED FROM CL SITE (R GROIN). SUTURES REMOVED AND DRESSING APPLIED. MANAGER TRANSPORTATION PLANNING NOTIFIED. PT USED 3L O2 VIA NC AND BIPAP FOR HS. PT SLEPT PART OF THE SHIFT. VSS WILL CONTINUE TO MONITOR.
[2021-01-06 07:16] VITALS: BP 150/63
--- NOTE | 2021-01-06 09:33 | NUR ---
Nutrition: Consult received for pt with decreased LOC. Admit with acute encephalopathy, dehydration, possible opiod overdose. Pt with hx of DM, RA, HTN, GERD, chronic pain. Wt down about 3 lb from last admit in November; likely r/t dehdyration, noted gradual wt gain over the years with class III morbid obesity. Albumin 2.6, Na 147. Meds: insulin, statin, remeron. BG 151-230. Nsg noted pt refused meal last pm, and RN stated pt was not interested in breakfast today. Will add Glucerna w/ lunch and dinner. Assess at mild nutrition riks.
--- NOTE | 2021-01-06 14:08 | NUR ---
ASSUMED PT CARE THIS AM. PATIENT IS A&OX2, ABLE TO MAKE SOME NEEDS KNOWN. PATIENT HAS BEEN INCONTINENT THIS ENTIRE SHIFT. REDNESS NOTED UNDER SKIN FOLDS. DRESSING ON RIGHT GROIN FROM OLD CENTRAL LINE IS INTACT. STOOL IS GREEN IN COLOR AND THIN, PHYSICIAN NOTIFIED WITH NO NEW ORDERS. PATIENT GIVEN PAIN MEDS AND NAUSEA MEDICATION, NAUSEA AND PAIN DECREASED ACCORDINGLY. PATIENT IS ON ROOM AIR. MEDICAITONS TAKEN WITHOUT ISSUE. PATIENT REMAINS ON TELE. FALL PRECAUTIONS ARE IN PLACE, CALL LIGHT WITHIN REACH.
[2021-01-06 17:12] VITALS: BP 149/73
--- NOTE | 2021-01-06 18:44 | NUR ---
VAT CONSULTED FOR ML AFTER NUMEROUS PIV ATTEMPTS. DISCUSSED BENEFITS AND RISK OF ML WITH PT, VERBALIZED UNDERSTANDING 4FR POWER ML TRIMMED TO 14CM INSERTED TO 0CM WITH BRISK BR. ML RELEASED FOR IMMEDIATE USE PER PROTOCOL TO PATY GARCIA
--- NOTE | 2021-01-07 04:42 | NUR ---
PT REMAIN ALERT AND ORIENT TIMES THREE, FORGETFUL AT TIMES. TOLERATING PO INTAKE. DC D5W. PRN PAIN MEDICATIONS GIVEN WITH GOOD RELIEF. SR PER MONITOR. UP WITH SBA TO BSC. ABLE TO REPOSITON SELF. SLOW PROGRESS TOWARDS DC GOAL, WILL CONTINUE TO MONITOR.
[2021-01-07 08:28] VITALS: BP 144/84
--- NOTE | 2021-01-07 11:54 | NUR ---
PT ADMITTED RELATED TO AMS AND ARF. CM REVIEWED CHART AND SPOKE WITH CARE TEAM. CM MET WITH PT AT BEDSIDE THIS DAY. PT APPEARED TO BE A&O X4. CM ROLE INTRODUCED. PT INDICATED SHE LIVES IN AN APPARTMENT AT [facility]. PT INDICATED SHE HAD BEEN INDEPDENENT WITH GAIT AND ADLS RECORD LABEL INTERNSHIP. PT INDICATED SHE HAS A CANE AND A FWW FOR HOME USE. PT INDICATED SHE HAD A PAID CAREGIVER THROUGH [facility] 4-5 HRS PER DAY. PT INDICATED SHE WOULD BE RECEPTIVE TO HH SERVICES UPON DC. CM MET WITH PT AT BEDSIDE THIS DAY AND SHE IS AGREEABLE. INDICATED SHE WANTED TO USE [facility] HH. REFERRAL SENT. CARE TEAM INDICATED THAT PT IS MEDICALLY STABLE TO DC HOME THIS DAY. PT'S SON TO PROVIDE TRANSPORT HOME THIS DAY. NO OTHER CM INTERVENTION INDICATED. CASE CLOSED.
[2021-01-07 12:03] VITALS: BP 144/84
[2021-01-07] MEDS ORDERED: LANTUS SUBQ (12:16)
[2021-01-07] MEDS ORDERED: HUMALOG100 UNIT/1 SUBQ (12:16)
--- NOTE | 2021-01-07 13:44 | NUR ---
ASSUMED CARE OF PATIENT AT SHIFT CHANGE. ASSESSMENT CHARTED. MEDICATIONS ADMINISTERED PER EMAR WITH NO ISSUES. VSS. PATIENT IS A&OX3 AND ABLE TO MAKE NEEDS KNOWN. PATIENT IS A SBA AND ALSO WORKED WITH PT/OT AND DID WELL. PATIENT WAS SEEN BY HOSPITALIST AND DEEMED MEDICALLY STABLE TO DISCHARGE HOME TODAY. PATIENT CONTACTED HER SON TO BRING HER HOME; SHE WILL BE GOING TO [place] ON TUESDAY AND HOMEHEALTH IS AWARE AND WILL BE IN CONTACT WITH THE PATIENT. DISCHARGE ORDERS ARE IN; AWAITING FOR PATIENT SON TO FINALIZE DISCHARGE
[2021-01-07] MEDS ORDERED: CEFDINIR300 MG PO (15:15)
== END 2021-01-07 15:57 | disposition home health service (06) | DRG 917 ==
LOC: ER 00:58 → ICU 05:18 → EROBS 05:18 → ICU 21:06 → 4W 01-05 17:31
PROVIDERS: Emergency Medicine; Internal Medicine Nephrology; Internal Medicine Pulmonary Disease; Nurse Practitioner; ADMIT Hospitalist; ATTEND Hospitalist
DX: T40.601A Poisoning by unspecified narcotics, accidental (unintentional), initial encounter (principal); J96.01 Acute respiratory failure with hypoxia; G92 Toxic encephalopathy; J96.02 Acute respiratory failure with hypercapnia; N17.9 Acute kidney failure, unspecified; E87.0 Hyperosmolality and hypernatremia; E87.3 Alkalosis; Z68.42 Body mass index [BMI] 45.0-49.9, adult; E86.0 Dehydration; E03.9 Hypothyroidism, unspecified; F41.9 Anxiety disorder, unspecified; F32.9 Major depressive disorder, single episode, unspecified; M06.9 Rheumatoid arthritis, unspecified; G89.29 Other chronic pain; J98.6 Disorders of diaphragm; K21.9 Gastro-esophageal reflux disease without esophagitis; I12.9 Hypertensive chronic kidney disease with stage 1 through stage 4 chronic kidney disease, or unspecified chronic kidney disease; E11.22 Type 2 diabetes mellitus with diabetic chronic kidney disease; N18.2 Chronic kidney disease, stage 2 (mild); E87.8 Other disorders of electrolyte and fluid balance, not elsewhere classified; E66.01 Morbid (severe) obesity due to excess calories; Z20.822 Contact with and (suspected) exposure to COVID-19; Z88.6 Allergy status to analgesic agent; Z88.8 Allergy status to other drugs, medicaments and biological substances; Z79.891 Long term (current) use of opiate analgesic; Y92.89 Other specified places as the place of occurrence of the external cause
CPT/HCPCS: 10045; 10078; 10203; 27000

== ENCOUNTER → 2021-02-04 | Outpatient (CLI) | payer OTHER ==
[~2021-02-04] MED LIST changes: +BREZTRI AEROS10.7 GM INH; +CEFDINIR300 MG PO; +HUMALOG100 UNIT/1 SUBQ; +LANTUS SUBQ; +LEVEMIR100 UNIT/1 SUBQ; +PROAIR HFA8.5 GM INH; +REMERON30 MG PO; +REXULTI2 MG PO
== END ==
LOC: CAT 01-05 15:54
PROVIDERS: ATTEND Pediatrics
DX: J98.11 Atelectasis (principal); J44.9 Chronic obstructive pulmonary disease, unspecified; R06.02 Shortness of breath; J98.4 Other disorders of lung